=== PATIENT | male | born 1955 | race Caucasian/White ===

== ENCOUNTER → 2019-08-07 05:41 | Day surgery (SDC) | payer BC ==
--- NOTE | 2019-08-03 01:07 | HP ---
CC: Dr. Alex Javier; Dr. Nba Gonzalez; Dr. Oren Dorman * ADMISSION HISTORY AND PHYSICAL: DATE OF ADMISSION: 08/07/19 ATTENDING SURGEON: Dr. Nba Ferrara.* (DICTATED BY ZOILA MCALLISTER) CHIEF COMPLAINT: Rectal carcinoma. HISTORY OF PRESENT ILLNESS: This is a 63-year-old male who for at least the past year had noted intermittent rectal bleeding. Beginning about 3 months ago , he noticed blood more consistently with each bowel movement and some accompanying pain. Of late, pain has been more consistent both with and between bowel movements. He was seen and examined by Dr. Ferrara on 06/29/19, at which time, rectal exam revealed a right-sided posterolateral fixed mass within the rectum. He underwent colonoscopy on 07/06/[address] Crane, which confirmed the presence of a right-sided posterolateral partial circumferential mass, from which biopsies were taken showing an invasive moderately differentiated adenocarcinoma. CT scan from 07/19/19 showed cirrhosis as well as splenomegaly and portosystemic shunt/varices. Also noted were mild diverticulosis and a probable enchondroma in the right femur. A lesion was confirmed in the distal rectum extending to the anus and with some sparing on the left side consistent with known carcinoma, one lymph node was seen posteriorly in the mesorectum measuring 0.6 cm. The patient did undergo an MRI today but that report is not yet available. He has been seen by both medical and radiation oncologists and was initiated by Dr. Gonzalez on extended- release morphine sulfate with improvement. He was noted to be mildly anemic on recent lab work from 07/06/19. His case was reviewed at [facility] and he has been recommended for neoadjuvant chemoradiation therapy, which is planned to start on 08/07/19. Dr. Ferrara has discussed with him the indications for port placement as well as the risks and alternatives. The patient elected to proceed as scheduled with placement of a power port. The patient's family history is negative for colorectal cancer, though was positive for ovarian cancer in his mother. PAST MEDICAL HISTORY: 1. Hepatitis C (apparently with active disease despite two separate treatment regimens with interferon. Most recent liver function tests showed normal transaminases, though CT findings are noted as above). 2. Hypertension (currently untreated). 3. Glaucoma. 4. Peripheral edema. 5. Obesity. (The patient has not seen his primary care provider in 3 to 4 years). PAST SURGICAL HISTORY: Previous surgeries include exploratory laparotomy for ruptured appendicitis. CURRENT MEDICATIONS: 1. Latanoprost 0.005% one drop each eye once daily. 2. Timolol 0.5% one drop each eye once daily. DRUG ALLERGIES: None known. FAMILY HISTORY: As noted above. Father from CHF. No known family history of anesthesia problems, bleeding or clotting disorders. SOCIAL HISTORY: The patient is single and lives alone. He is employed as a biomedical service engineer. He did smoke up to 1 pack per day many years ago and then intermittently until he quit in 2010. He drinks 2 beers per week. He denies any other recreational drug use. REVIEW OF SYSTEMS: General: No recent constitutional symptoms or acute illnesses other than described in the HPI. He states that his weight has been relatively stable. HEENT: No problems reported. No recent visual changes. Cardiovascular: No chest pain, palpitations, or history of heart murmur. He has been treated for hypertension in the past but not lately. Respiratory: No recent cough or shortness of breath. No respiratory complaints. GI: As above per HPI. No upper GI complaints. Apparently active hepatitis C. : No problems reported. Endocrine: No diabetes or thyroid dysfunction. Musculoskeletal: No complaints. PHYSICAL EXAMINATION GENERAL: Well-nourished obese male in no acute distress. VITAL SIGNS: Height 5 feet 9 inches, weight 245 pounds. Other vital signs per nursing. HEENT: Pupils equal, round, and reactive. EOMS intact. No conjunctival pallor. Oropharynx: Teeth in fair repair. Some missing teeth. No intraoral lesions. NECK: No lymphadenopathy in the cervical or supraclavicular regions. No thyromegaly or masses. LUNGS: Clear to auscultation. No rales or wheezes. HEART: Regular rate and rhythm. No murmur noted. ABDOMEN: Well-healed lower midline incision. Soft, nontender to palpation. No palpable masses or organomegaly, though exam limited by body habitus. BACK: No spinous process or CVA tenderness. EXTREMITIES: No obvious edema. He does have compression stockings in place bilaterally per the patient. No open lesions in the lower extremities. GENITALIA: Not done. RECTAL: Not done. NEUROLOGICAL: Grossly intact. SKIN: Warm and dry. No suspicious rashes or lesions noted. IMPRESSION: Rectal carcinoma. PLAN: Power port placement for neoadjuvant chemotherapy. ZOILA MCALLISTER [id number]/[facility] #: [id number] MTDD
[~2019-08-07 05:41] MED LIST: Buffered Lidocaine 1% SYRIN* 1 ML/SYRINGE INTRADERM ONE; Dexamethasone TAB* 4 MG ONE; Dexamethasone TAB* 4 MG PO ONE; DiMENhydriNATE IV* 50 MG/ML VIAL IV PUSH PRN; Famotidine IV* 10 MG/ML 2 ML (20 mg) IV ONE; Famotidine IV* 10 MG/ML 2 ML (20 mg) ONE; Lactated Ringers 1000 ML Bag* 1,000 ML IV SCH; Lidocaine 1% INJ* 10 MG/ML 30 ML SDV ONE; Lidocaine 2% PF * 5 ML VIAL ONE; Midazolam* 1 MG/ML 10 ML VIAL (10 MG) ONE; Naloxone* 0.4 MG/ML 1 ML VIAL IV PRN; Ondansetron ODT TAB* 4 MG ONE; Ondansetron ODT TAB* 4 MG PO ONE; Propofol* 10 MG/ML 20 ML BTL ONE; ceFAZolin 2 GM in NS PREMIX(*) 2 GM/100 ML BAG IVPB ONE; fentaNYL* 50 MCG/ML 2 ML VIAL (100 MCG VIAL) IV PRN; fentaNYL* 50 MCG/ML 5 ML VIAL (250 MCG VIAL) ONE; oxyCODONE TAB* 5 MG TAB PO PRN
[2019-08-07 09:27] VITALS: BP 139/70
--- NOTE | 2019-08-08 20:38 | OP ---
CC: Oren Dorman MD, Alex Javier MD * DATE OF OPERATION: 08/07/19 - [facility] DATE OF : 53 SURGEON: Nba Ferrara MD POWER WASHER: None. ANESTHESIOLOGIST: Dr. Bustillos. ANESTHESIA: Local MAC. PRE-OP DIAGNOSIS: Rectal carcinoma. POST-OP DIAGNOSIS: Rectal carcinoma. OPERATIVE PROCEDURE: PowerPort placement, left subclavian. ESTIMATED BLOOD LOSS: Minimal. IV FLUIDS: Crystalloid. SPECIMEN: None. DRAINS: None. COMPLICATIONS: None. COUNTS: The instrument, needle, and sponge counts were correct. DESCRIPTION OF PROCEDURE: The patient was brought to the operating room and placed on the table supine. Sequential compression devices were placed in both lower extremities. Intravenous sedation was administered. He was positioned and padded appropriately. He was prepped and draped in the usual sterile fashion. He received appropriate intravenous antibiotics. A time-out was performed. Local anesthetic was infiltrated into the skin and soft tissue prior to making each incision. Local anesthetic was infiltrated for a left subclavian approach. The patient was positioned in Trendelenburg and then using an 18- gauge needle, the left subclavian vein was accessed on the first pass. The guidewire was advanced into the superior vena cava under fluoroscopic guidance. The additional local anesthetic was infiltrated to the upper left chest and a transverse incision was created and using cautery dissection, a subcutaneous pocket was created. A counterincision was made at the guidewire insertion site and then an 8-Slov[place] PowerPort catheter was back tunneled to the pocket. A peel -away sheath and dilator were advanced over the guidewire into the superior vena cava under fluoroscopic guidance. Dilator and the guidewire were removed and then the catheter tip was advanced to the atriocaval junction. A peel-away sheath was removed. The catheter tip was again confirmed prior to cutting the catheter to appropriate length, which was then connected to the PowerPort and placed into the subcutaneous pocket. It was drawn and flushed without difficulty. The port was secured into the pocket with 2 sutures of 2-0 Prolene. The pocket was closed with two layers using 3-0 Vicryl for the subcutaneous tissues, 4-0 Monocryl for the skin. Counterincision was closed with 4-0 Monocryl. The port was accessed. It was flushed with heparinized saline. Steri-Strips were applied. The access needle was placed and then Tegaderm dressing was placed over this. The patient tolerated the procedure well and was awakened and transferred to Recovery stable. [id number]/[facility] #: [id number] UMA
== END | disposition home or self-care (01) ==
LOC: OR 05:41
PROVIDERS: ATTEND Surgery
DX: C20 Malignant neoplasm of rectum (principal); I10 Essential (primary) hypertension; R60.0 Localized edema; E66.9 Obesity, unspecified; B19.20 Unspecified viral hepatitis C without hepatic coma; K74.60 Unspecified cirrhosis of liver
CPT/HCPCS: 76000; A9270-GY; C1788; J0690; J1642; J2250; J2704; J3010; J8540

== ENCOUNTER 2020-01-03 10:17 | Inpatient (IN) | payer MEDICARE, BC ==
[2020-01-03 10:45] LABS: Hematocrit 25 % (42-52); Hemoglobin 8.3 g/dL (14.0-18.0); Mean Corpuscular HGB Conc 34 g/dL (31-36); Mean Corpuscular Hemoglobin 33 pg (27-31); Mean Corpuscular Volume 99 fL (80-94); Mean Platelet Volume 8.6 fL (7.4-10.4); Platelet Count 142 10^3/uL (150-450); Red Blood Count 2.48 10^6 /uL (4.18-5.48); Red Cell Distribution Width 20 % (10-15); White Blood Count 2.1 10^3/uL (3.5-10.8)
[2020-01-03 10:47] LABS: ABS Eosinophils 0.1 10^3/ul (0-0.6); ABS Lymphocytes 0.4 10^3/ul (1.0-4.8); ABS Monocytes 0.9 10^3/ul (0-0.8); ABS Neutrophils 0.7 10^3/ul (1.5-7.7); Eosinophil % 4.8 %; Lymphocyte % 19.4 %
[2020-01-03 10:57] LABS: ALT 34 U/L (7-52); AST 43 U/L (13-39); Alkaline Phosphatase 119 U/L (34-104); Anion Gap 5 mmol/L (2-11); BUN/Creatinine Ratio 28.2 (8-20); Blood Urea Nitrogen 22 mg/dL (6-24); CO2 Carbon Dioxide 24 mmol/L (22-32); Calcium 8.7 mg/dL (8.6-10.3); Chloride 105 mmol/L (101-111); EGFR African American 120.9 (>60); EGFR Non-African American 99.9 (>60); Globulin 3.1 g/dL (2-4); Glucose 172 mg/dL (70-100); Magnesium 1.9 mg/dL (1.9-2.7); Sodium 134 mmol/L (135-145); Total Protein 6.1 g/dL (6.4-8.9)
[2020-01-03 11:00] LABS: % Iron Saturation 14 % (15-55); Iron 39 ug/dL (50-212); Total Iron Binding Capacity 283 mcg/dL (250-450); Transferrin 202 mg/dL (203-362)
[2020-01-03 11:20] LABS: Ferritin 75.5 ng/mL (24-336)
[2020-01-03] MEDS ORDERED: Acetaminophen TAB* 325 MG PO PRN (12:02)
[2020-01-03] MEDS ORDERED: oxyCODONE/Acetamin 5/325 MG* TAB PO PRN (12:02)
[2020-01-03] MEDS ORDERED: Ondansetron INJ* 2 MG/ML VIAL IV PRN (12:02)
[2020-01-03] MEDS: NS 0.9% 1000 ML** 1,000 ML IV SCH ×2 (13:13→21:37)
[2020-01-03] MEDS: Enoxaparin(*) 40 MG/0.4 ML SYR SUBCUT SCH (14:36)
[2020-01-03] MEDS ORDERED: Iohexol 300* (CONTRAST) 10 ML SDV IV ONE (16:06)
[2020-01-03] MEDS ORDERED: Piperacillin/Tazobac ADVAN(*) 3.375 GM in NS 0.9% 100 ML* 100 ML IVPB ONE (17:04)
--- NOTE | 2020-01-03 17:23 | CONS ---
CC: Dr. Oren Dorman; Primary Care Doctor; [facility]; Dr. Nba Gonzalez; Dr. Nikky Lomeli, Colorectal Surgeon, [facility] SURGICAL CONSULTATION REPORT: DATE OF CONSULT: 01/03/20 HISTORY OF PRESENT ILLNESS: I was contacted by the oncology service to evaluate Mr. 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 The patient did undergo evaluation by the oncologist earlier today, wh ich included rectal exam and the patient refused rectal exam today by me. The patient describes last chemotherapy of FOLFOX just over 2 weeks ago, started to feel poorly about a week ago on . It was accompanied by decreased appetite. He described pain in the mid abd omen that persisted, did not have aggravating factors of eating or drinking; however, the patient did have decreased intake. Over the weekend, he woke up and had bloody bowel movements that he described as melena, but sound as though they had blood clot in them. It was accompanied with flatus. Later on, the patient had a sy ncopal episode. The patient lives alone. He had woken up later, not sure how long afterwards, incont inent of urine. He slowly brought himself up to his bed where he slept it off. He missed his follow up appointment with Oncology earlier this week and again was seen today in their offices. The patient describes the abdominal pain as severe. It does wax and wane, lasting at times for over a minute of severe pain where he feels like something is trying to move through a stricture or some t ightness. He has had 1 episode of vomiting, intermittent nausea, as well as dry heaves at times. Th is past week, he has been passing blood as well as intermittent semi-formed bowel movements. He is p assing flatus. He denies fever, but has been checking his temperature on his home thermometer where it has been 96, which he felt is not accurate, but does not state that he had chills or felt warm. The patient had rectal bleeding for many years. He thought it was secondary to hemorrhoids. He did undergo a sigmoidoscopy in June of last year where he was noted to have a near obstructing bleedin g rectal lesion. The patient has been seen by colorectal surgeons where he made it clear that he did not want to undergo a colostomy if he did not have to. He was started on neoadjuvant chemotherapy, which continues. Radiation therapy treatments have been completed, and the patient has no new follow ups with colorectal surgeon in [place] at this point. The patient denies any hernias. He lies down for relief of this pain and again it will pass with kaitlin e. It is nonradiating. It is 10/10. PAST MEDICAL HISTORY: Hepatitis C, cirrhosis, glaucoma, hypertension, obesity, peripheral vascular d isease. PAST SURGICAL HISTORY: Exploratory laparotomy, appendectomy for ruptured appendix. MEDICATIONS: Include: 1. Amlodipine. 2. Multivitamin. Again, the FOLFOX completed 2 weeks ago. ALLERGIES: No known drug allergies. FAMILY HISTORY: Cancers. SOCIAL HISTORY: He lives alone. He does not smoke. He drinks occasionally. I do not believe there are any surrogate decision makers. REVIEW OF SYSTEMS: No shortness of breath. He is tired. Syncopal event as described. Abdominal pa in as described. No dysuria. History of significant thrush earlier this year, but not bothering him at this time. No depression. PHYSICAL EXAM: Temperature 97.4, blood pressure 167/70, heart rate 94, respirations 18, O2 sat of 10 0% on room air. He is alert, sitting in bed, pale, in mild distress. Head, ears, eyes, nose, and th roat: Normocephalic, atraumatic. Sclerae anicteric. Mucous membranes dry. Neck: No lymphadenopath y. Abdomen: Soft, obese. Minimally tender on deep palpation at the periumbilical site. Well- heale d midline incision. No hernias noted. No skin changes. No CVA tenderness. Rectal exam shows no [place] lulitis in the perianal area. The patient refused digital rectal exam, however, today. Hairless con sistent with radiation treatment and no protruding mass appreciated. Extremities with hemosiderin st aining bilaterally consistent with venous stasis disease. DIAGNOSTIC STUDIES/LAB DATA: Labs today show white count of 2.1, H and H 8.3/25 which is down from 2 9 just 2 weeks ago, platelet count 142 which is significant improvement than when he was on additiona l chemotherapy where it was much lower. Glucose 172. Total bilirubin 1.9. Albumin 3.0. The patient is drinking for the CAT scan. No imaging is available at this time. IMPRESSION AND PLAN: A 64-year-old gentleman with a large rectal lesion on workup last year, with kn own rectal cancer, undergoing neoadjuvant chemotherapy, who now presents with a week of abdominal rodrigue n along with anemia, recent syncopal episode. Surgical differential diagnosis, concern for perirectal abscesses that can occur with such lesions, although I do not feel this is the diagnosis, although I was not able to examine him today as the patient refused. Partial small bowel obstruction secondary to previous surgery and potential mass effect, but this is not something we would operate on at this time. I will look forward to a CAT scan of the abdomen and pelvis. We are concerned with a near ob structing lesion and the possibility of proximal perforation. I do not believe the patient has this judging by his abdominal exam today. He may suffer with dehydration and anemia and subsequent mesent renny angina. My recommendation is hydration, possible blood transfusion, GI prophylaxis, obtain CT s can and serial abdominal exams, pain control. I discussed this with the patient. We also spent a fa ir amount of time talking today about recommendation for surgical intervention namely APR. The patie nt is somewhat fearful of this procedure, but I think our discussion today was somewhat helpful in th at direction, it has given something else for the patient to think about. Again, we will continue to follow. We will leave antibiotics at the discretion of the primary team unless something should mini nge with the findings on the CT scan. [id number]/[facility] #: [id number]
[2020-01-03] MEDS ORDERED: Zosyn per Pharmacy* NOTE FOLLOW UP SCH (18:00)
[2020-01-03] MEDS ORDERED: diPHENhydraMINE IV* 50 MG/ML 1 ml VIAL (BENADRYL) IV ONE (21:00)
[2020-01-03] MEDS: ZOSYN 3.375 GM Q8H per EXTENDED INFUSION IVPB SCH ×2 (22:52)
[2020-01-04] MEDS: NS 0.9% 1000 ML** 1,000 ML IV SCH ×3 (04:35→21:57)
[2020-01-04] MEDS: ZOSYN 3.375 GM Q8H per EXTENDED INFUSION IVPB SCH ×6 (06:20→21:58)
[2020-01-04 06:28] LABS: Hematocrit 21 % (42-52); Hemoglobin 7.1 g/dL (14.0-18.0); Mean Corpuscular HGB Conc 34 g/dL (31-36); Mean Corpuscular Hemoglobin 34 pg (27-31); Mean Corpuscular Volume 98 fL (80-94); Mean Platelet Volume 8.5 fL (7.4-10.4); Platelet Count 128 10^3/uL (150-450); Red Blood Count 2.13 10^6 /uL (4.18-5.48); Red Cell Distribution Width 21 % (10-15); White Blood Count 2.1 10^3/uL (3.5-10.8)
[2020-01-04 06:32] LABS: Albumin 2.5 g/dL (3.2-5.2); Albumin/Globulin Ratio 0.9 (1-3); BUN/Creatinine Ratio 26.8 (8-20); Calcium 7.9 mg/dL (8.6-10.3); EGFR African American 114.1 (>60); EGFR Non-African American 94.3 (>60); Globulin 2.7 g/dL (2-4); Magnesium 1.8 mg/dL (1.9-2.7); Potassium 3.6 mmol/L (3.5-5.0); Total Bilirubin 1.6 mg/dL (0.2-1.0); Total Protein 5.2 g/dL (6.4-8.9)
[2020-01-04 06:33] LABS: ABS Eosinophils 0.2 10^3/ul (0-0.6); ABS Lymphocytes 0.4 10^3/ul (1.0-4.8); ABS Monocytes 0.9 10^3/ul (0-0.8); ABS Neutrophils 0.5 10^3/ul (1.5-7.7); Eosinophil % 11.2 %; Lymphocyte % 18.1 %
[2020-01-04] MEDS ORDERED: Magnesium Sulfate 2 GM IV* 2 GM/50 ML BAG IVPB ONE (10:43)
--- NOTE | 2020-01-04 10:57 | PN ---
Progress Note - Progress Note Date of Service: 01/04/20 Note: Surgery Progress Note S: Darell is feeling better this morning than yesterday. His abdominal pain has improved. He is having more watery diarrhea however. O: Vital Signs - 24 hr 01/03/20 01/03/20 01/03/20 13:15 16:08 16:10 Temperature 100.0 F 97.4 F Pulse Rate 99 94 Respiratory 16 16 18 Rate Blood Pressure 146/70 167/70 (mmHg) O2 Sat by Pulse 100 100 Oximetry 01/03/20 01/03/20 01/03/20 19:41 20:08 20:50 Temperature 98.1 F Pulse Rate 95 Respiratory 18 18 18 Rate Blood Pressure 136/67 (mmHg) O2 Sat by Pulse 99 Oximetry 01/03/20 01/03/20 01/04/20 21:05 23:01 01:20 Temperature 97.9 F Pulse Rate 95 Respiratory 18 18 18 Rate Blood Pressure 135/70 (mmHg) O2 Sat by Pulse 100 Oximetry 01/04/20 01/04/20 04:19 08:00 Temperature 98.0 F 98.7 F Pulse Rate 98 102 Respiratory 18 16 Rate Blood Pressure 111/49 149/67 (mmHg) O2 Sat by Pulse 96 100 Oximetry Intake & Output 01/03/20 01/04/20 01/04/20 22:59 06:59 14:59 Intake Total 1086 1083 Output Total 300 0 Balance 1086 783 0 Weight 217 lb Intake: IV Fluids 1086 980 ABX - PIPERACILLIN 106 NS (0.9%) 980 980 IVPB 103 ABX - PIPERACILLIN 103 Oral 0 Output: Urine 300 0 Other: Estimated Stool Amount Medium Laboratory Results - last 24 hr 01/03/20 01/04/20 01/04/20 10:30 06:03 06:14 WBC 2.1 L RBC 2.13 L Hgb 7.1 L Hct 21 L MCV 98 H MCH 34 H MCHC 34 RDW 21 H Plt Count 128 L MPV 8.5 Neut % (Auto) 26.3 Lymph % (Auto) 18.1 [place] % (Auto) 43.5 Eos % (Auto) 11.2 Baso % (Auto) 0.9 Absolute Neuts (auto) 0.5 L Absolute Lymphs (auto) 0.4 L Absolute Monos (auto) 0.9 H Absolute Eos (auto) 0.2 Absolute Basos (auto) 0.0 Absolute Nucleated RBC 0.0 Nucleated RBC % 1.0 Sodium 134 L 135 Potassium 4.0 3.6 Chloride 105 108 Carbon Dioxide 24 22 Anion Gap 5 5 BUN 22 22 Creatinine 0.78 0.82 Est GFR ( Amer) 120.9 114.1 Est GFR (Non-Af Amer) 99.9 94.3 BUN/Creatinine Ratio 28.2 H 26.8 H Glucose 172 H 141 H Calcium 8.7 7.9 L Magnesium 1.9 1.8 L Iron 39 L TIBC 283 % Saturation 14 L Unsat Iron Binding < 268 Transferrin 202 L Ferritin 75.5 Total Bilirubin 1.90 H 1.60 H AST 43 H 31 ALT 34 26 Alkaline Phosphatase 119 H 100 Total Protein 6.1 L 5.2 L Albumin 3.0 L 2.5 L Globulin 3.1 2.7 Albumin/Globulin Ratio 1.0 0.9 L Physical exam: General- frail appearing man lying in bed, no apparent distress Abdomen- obese, no tenderness to deep palpation Ext- no edema A/P: 64 M with rectal cancer, sp cycle 4 of FOLFOX over 2 weeks ago who was admitted by Dr. Dorman from the office yesterday for worsening fatigue, weakness, abdominal pain. - I have reviewed patient's imaging from yesterday, including gallbladder US and CT abdomen/pelvis. On US he has a thickened, non distended gallbladder with no stones and on CT abdomen he has new onset ascites, cirrhosis, evidence of portal hypertension and long segment colon thickening concerning for colitis. Most likely patient has been experiencing neutropenic colitis, although he is a couple weeks out from his last cycle of FOLFOX. Today he feels improved after resuscitation and IV abx. Diarrhea is new onset and c.diff and stool studies have been ordered by the oncology team. - Recommend continued abx and starting CLD today - Patient has also agreed to be transfused 1 PRBC today I discussed patient today with Ahmet from the Heme Onc team.
[2020-01-04] MEDS: Enoxaparin(*) 40 MG/0.4 ML SYR SUBCUT SCH (12:16)
--- NOTE | 2020-01-04 12:44 | PN ---
Progress Note - Progress Note Date of Service: 01/04/20 SOAP: Subjective: [Feels better than he did yesterday. Was incontinent of watery stool several times overnight, no gross blood or melena however. Tmax 100.0F at the time he reached the floor yesterday. No n/v. Hungry and would like to eat. Abdominal pain comes in waves, nothing consistent.] Objective: [ Vital Signs: Temp Pulse Resp BP Pulse Ox 98.7 F 102 16 149/67 100 01/04/20 08:00 01/04/20 08:00 01/04/20 08:00 01/04/20 08:00 01/04/20 08:00 Acetaminophen (Tylenol Tab*) 650 mg PO Q4H PRN PRN Reason: PAIN - MILD Enoxaparin Sodium (Lovenox(*)) 40 mg SUBCUT Q24H [facility] Last Admin: 01/04/20 12:16 Dose: 40 mg Sodium Chloride (Ns 0.9% 1000 Ml) 1,000 mls @ 150 mls/hr IV PER RATE [facility] Last Admin: 01/04/20 04:35 Dose: 150 mls/hr Piperacillin Sod/Tazobactam (Sod 3.375 gm/ Sodium Chloride) 100 mls @ 25 mls/ hr IVPB Q8H [facility] Last Admin: 01/04/20 06:20 Dose: 25 mls/hr Ondansetron HCl (Zofran Inj*) 4 mg IV Q4H PRN PRN Reason: NAUSEA/VOMITING Oxycodone/Acetaminophen (Percocet 5/325 Tab*) 1 tab PO Q4H PRN PRN Reason: PAIN - MODERATE Pharmacy Consult (Zosyn Per Pharmacy*) 1 note FOLLOW UP .ZOSYN PER PHARMACY [facility] Laboratory Results - last 24 hr 01/03/20 01/04/20 01/04/20 10:30 06:03 06:14 WBC 2.1 L RBC 2.13 L Hgb 7.1 L Hct 21 L MCV 98 H MCH 34 H MCHC 34 RDW 21 H Plt Count 128 L MPV 8.5 Neut % (Auto) 26.3 Lymph % (Auto) 18.1 [place] % (Auto) 43.5 Eos % (Auto) 11.2 Baso % (Auto) 0.9 Absolute Neuts (auto) 0.5 L Absolute Lymphs (auto) 0.4 L Absolute Monos (auto) 0.9 H Absolute Eos (auto) 0.2 Absolute Basos (auto) 0.0 Absolute Nucleated RBC 0.0 Nucleated RBC % 1.0 Sodium 135 Potassium 3.6 Chloride 108 Carbon Dioxide 22 Anion Gap 5 BUN 22 Creatinine 0.82 Est GFR ( Amer) 114.1 Est GFR (Non-Af Amer) 94.3 BUN/Creatinine Ratio 26.8 H Glucose 141 H Calcium 7.9 L Magnesium 1.8 L Total Bilirubin 1.60 H AST 31 ALT 26 Alkaline Phosphatase 100 Total Protein 5.2 L Albumin 2.5 L Globulin 2.7 Albumin/Globulin Ratio 0.9 L Blood Type O Positive Antibody Screen Crossmatch 01/04/20 06:14 WBC RBC Hgb Hct MCV MCH MCHC RDW Plt Count MPV Neut % (Auto) Lymph % (Auto) [place] % (Auto) Eos % (Auto) Baso % (Auto) Absolute Neuts (auto) Absolute Lymphs (auto) Absolute Monos (auto) Absolute Eos (auto) Absolute Basos (auto) Absolute Nucleated RBC Nucleated RBC % Sodium Potassium Chloride Carbon Dioxide Anion Gap BUN Creatinine Est GFR ( Amer) Est GFR (Non-Af Amer) BUN/Creatinine Ratio Glucose Calcium Magnesium Total Bilirubin AST ALT Alkaline Phosphatase Total Protein Albumin Globulin Albumin/Globulin Ratio Blood Type O Positive Antibody Screen Negative Crossmatch See Detail Exam Gen: ill appearing 64 yo male in NAD HEENT: MMM CV: RRR, III/ murmur Resp: CTA Abd: midly distended but nonTTP Ext: no edema] Assessment: [This is a 64 yo male with rectal CA currently receiving neoadjuvant FOLFOX who presented yesterday to the oncology suite after several days of BRBPR and melena with associated abdominal pain. CT demonstrates mural wall thickening of the ascending and transverse colon c/w a colitis. Ddx. infectious colitis, neutropenic colitis (typhilitis). He remains neutropenic, but afebrile. Now day 18 of C4. ] Plan: [1. Colitis - surgical consultation is appreciated - eval for C.diff and send for stool culture to identify alternative pathogens - cont Zosyn and IVF - advance to clear liquid diet 2. Pancytopenia secondary to chemotherapy - his degree of neuropenia is late for FOLFOX, but likely associated with his acute illness - hold on initiating GCSF at this time but will consider if fevers develop or neutropenia is prolonged - degree of anemia is certainly related to bleeding from the colon, drop overnight likely due to dilution from IVF - give 1UPRBCs today 3. Rectal CA - s/p C4 neoadjuvant FOLFOX following 5FU/XRT which was c/b grade 3 mucositis Dispo: requires continued inpatient care]
[2020-01-05] MEDS: NS 0.9% 1000 ML** 1,000 ML IV SCH (05:12)
[2020-01-05] MEDS: ZOSYN 3.375 GM Q8H per EXTENDED INFUSION IVPB SCH ×2 (05:51)
--- NOTE | 2020-01-05 08:37 | PN ---
Progress Note - Progress Note Date of Service: 01/05/20 Note: S: Reports he is feeling much better today. Minimal to no pain, no nausea, emesis. Somewhat formed BM passed last night. Passing flatus as well. Tolerating diet. O: Temp Pulse Resp BP Pulse Ox 98.9 F 94 16 143/64 99 01/05/20 07:51 01/05/20 07:51 01/05/20 07:51 01/05/20 07:51 01/05/20 07:51 Intake and Output Last 24 Hours 01/03/20 01/04/20 01/05/20 01/06/20 06:59 06:59 06:59 06:59 Intake Total 2519 6323 Output Total 300 1550 75 Balance 2219 4773 -75 Weight 217 lb Intake: IV Fluids 2065 3021 ABX - PIPERACILLIN 106 NS (0.9%) 1960 2971 mag 50 IVPB 103 220 ABX - PIPERACILLIN 103 220 Oral 350 2780 Packed Cells 302 Output: Urine 300 600 75 Liquid Stool 950 Other: Estimated Void Large Date of Last Bowel t Movement # Bowel Movements 1 1 Estimated Stool Amount Medium Medium Small # Voids 1 Morning labs pending PEX General: Alert, in NAD. HEENT: Oropharynx clear. PERRLA. Heart: Regular rhythm. Tachycardic. No murmurs, rubs, gallups. Lungs: CTAB, no WRR. ABD: BS present. Soft, nontender and nondistended. No guarding or rebound tenderness. Extremities: Distal pulses intact BL. No edema. Calves soft and nontender. Assessment and plan: 64 M with rectal cancer, admitted for worsening fatigue, weakness, ABD pain A/P: 64 M with rectal cancer, sp cycle 4 of FOLFOX over 2 weeks ago who was admitted by Dr. Dorman from the office yesterday for worsening fatigue, weakness, abdominal pain, likely cause being neutropenic colitis. Recieved 1 PRBC yesterday. Continue antibiotics and IV fluids, additionally ambulation and kelly stockings. Advanced diet to full liquids.
[2020-01-05 10:45] LABS: Albumin 2.7 g/dL (3.2-5.2); Albumin/Globulin Ratio 0.9 (1-3); BUN/Creatinine Ratio 22.8 (8-20); Calcium 7.8 mg/dL (8.6-10.3); EGFR African American 119.1 (>60); EGFR Non-African American 98.4 (>60); Globulin 2.9 g/dL (2-4); Magnesium 1.9 mg/dL (1.9-2.7); Total Bilirubin 1.7 mg/dL (0.2-1.0); Total Protein 5.6 g/dL (6.4-8.9)
[2020-01-05 10:48] LABS: Hematocrit 24 % (42-52); Hemoglobin 8.1 g/dL (14.0-18.0); Mean Corpuscular HGB Conc 34 g/dL (31-36); Mean Corpuscular Hemoglobin 33 pg (27-31); Mean Corpuscular Volume 97 fL (80-94); Mean Platelet Volume 8.3 fL (7.4-10.4); Platelet Count 128 10^3/uL (150-450); Red Blood Count 2.49 10^6 /uL (4.18-5.48); Red Cell Distribution Width 21 % (10-15); White Blood Count 2.7 10^3/uL (3.5-10.8)
--- NOTE | 2020-01-05 11:27 | PN ---
Progress Note - Progress Note Date of Service: 01/05/20 SOAP: Subjective: [Feels much better today. Abd pain has resolved. Tolerated full liquid breakfast. Still having freq stools, but more substantive. C.diff negative. Remains afebrile.] Objective: [ Vital Signs: Temp Pulse Resp BP Pulse Ox 98.9 F 94 16 143/64 99 01/05/20 07:51 01/05/20 07:51 01/05/20 07:51 01/05/20 07:51 01/05/20 07:51 Acetaminophen (Tylenol Tab*) 650 mg PO Q4H PRN PRN Reason: PAIN - MILD Enoxaparin Sodium (Lovenox(*)) 40 mg SUBCUT Q24H COUNTS INCLUDE 234 BEDS AT THE [facility] Last Admin: 01/04/20 12:16 Dose: 40 mg Piperacillin Sod/Tazobactam (Sod 3.375 gm/ Sodium Chloride) 100 mls @ 25 mls/ hr IVPB Q8H COUNTS INCLUDE 234 BEDS AT THE [facility] Last Admin: 01/05/20 05:51 Dose: 25 mls/hr Potassium Chloride/Sodium Chloride (Ns 0.9% W/ 40 Meq Kcl 1000 Ml*) 1,000 mls @ 75 mls/hr IV PER RATE COUNTS INCLUDE 234 BEDS AT THE [facility] Ondansetron HCl (Zofran Inj*) 4 mg IV Q4H PRN PRN Reason: NAUSEA/VOMITING Oxycodone/Acetaminophen (Percocet 5/325 Tab*) 1 tab PO Q4H PRN PRN Reason: PAIN - MODERATE Pharmacy Consult (Zosyn Per Pharmacy*) 1 note FOLLOW UP .ZOSYN PER PHARMACY COUNTS INCLUDE 234 BEDS AT THE [facility] Laboratory Results - last 24 hr 01/04/20 01/05/20 01/05/20 06:14 08:14 08:14 WBC 2.7 L RBC 2.49 L Hgb 8.1 L Hct 24 L MCV 97 H MCH 33 H MCHC 34 RDW 21 H Plt Count 128 L MPV 8.3 Sodium 136 Potassium 3.0 L Chloride 109 Carbon Dioxide 20 L Anion Gap 7 BUN 18 Creatinine 0.79 Est GFR ( Amer) 119.1 Est GFR (Non-Af Amer) 98.4 BUN/Creatinine Ratio 22.8 H Glucose 185 H Calcium 7.8 L Magnesium 1.9 Total Bilirubin 1.70 H AST 36 ALT 27 Alkaline Phosphatase 101 Total Protein 5.6 L Albumin 2.7 L Globulin 2.9 Albumin/Globulin Ratio 0.9 L Blood Type O Positive Antibody Screen Negative Crossmatch See Detail Exam Gen: mildly ill appearing 64 yo male in NAD HEENT: MMM CV: RRR, III/ murmur Resp: CTA Abd: midly distended but nonTTP Ext: no edema] Assessment: [This is a 64 yo male with rectal CA currently receiving neoadjuvant FOLFOX who presented yesterday to the oncology suite after several days of BRBPR and melena with associated abdominal pain. CT demonstrates mural wall thickening of the ascending and transverse colon c/w a colitis. Ddx. infectious colitis, neutropenic colitis (typhilitis). Now day 19 of C4. ANC still pending, but total WBC increased slightly today.] Plan: [1. Colitis - surgical consultation is appreciated - neg for C.diff and stool culture pending - cont Zosyn and IVF - advanced to full liquid diet, can consider soft foods for dinner 2. Pancytopenia secondary to chemotherapy - his degree of neuropenia is late for FOLFOX, but likely associated with his acute illness - holding on initiating GCSF, but will consider if fevers develop or neutropenia is prolonged - s/p 1U PRBCs yesterday with good Hgb response - will cont to monitor 3. Rectal CA - s/p C4 neoadjuvant FOLFOX following 5FU/XRT which was c/b grade 3 mucositis Dispo: requires continued inpatient care, hopeful for dc home in the next 1-2d once he can tolerate po intake reliably and ANC >1000]
[2020-01-05 11:51] LABS: ABS Eosinophils 0.3 10^3/ul (0-0.6); ABS Lymphocytes 0.5 10^3/ul (1.0-4.8); ABS Monocytes 0.8 10^3/ul (0-0.8); ABS Neutrophils 1.1 10^3/ul (1.5-7.7); Eosinophil % 9.3 %; Lymphocyte % 17.5 %; Nucleated Red Blood Cells % 1.3
[2020-01-05 11:53] LABS: Polychromasia 2+
[2020-01-05] MEDS: NS 0.9% w/ 40 Meq KCL 1000 ML* 1,000 ML IV SCH (12:03)
[2020-01-05] MEDS ORDERED: NS 0.9% 100 ML* 100 ML ONE (13:46)
[2020-01-05] MEDS: ZOSYN 3.375 GM Q6H IVPB SCH ×4 (13:55→20:47)
[2020-01-05] MEDS: Enoxaparin(*) 40 MG/0.4 ML SYR SUBCUT SCH (13:56)
[2020-01-05] MEDS: KCL 10 MEQ/50 ML IVPREMIX* 10 MEQ/50 ML BAG IV SCH ×4 (14:42→18:29)
[2020-01-05 21:12] LABS: Potassium 3.6 mmol/L (3.5-5.0)
[2020-01-06] MEDS: ZOSYN 3.375 GM Q6H IVPB SCH ×8 (01:40→19:58)
[2020-01-06] MEDS: NS 0.9% w/ 40 Meq KCL 1000 ML* 1,000 ML IV SCH (01:40)
[2020-01-06 05:30] LABS: Hematocrit 23 % (42-52); Hemoglobin 7.8 g/dL (14.0-18.0); Mean Corpuscular HGB Conc 35 g/dL (31-36); Mean Corpuscular Hemoglobin 34 pg (27-31); Mean Corpuscular Volume 97 fL (80-94); Mean Platelet Volume 8.3 fL (7.4-10.4); Platelet Count 128 10^3/uL (150-450); Red Blood Count 2.33 10^6 /uL (4.18-5.48); Red Cell Distribution Width 20 % (10-15)
[2020-01-06 05:57] LABS: Albumin 2.6 g/dL (3.2-5.2); Albumin/Globulin Ratio 0.9 (1-3); BUN/Creatinine Ratio 22.5 (8-20); Calcium 7.8 mg/dL (8.6-10.3); EGFR African American 134.7 (>60); EGFR Non-African American 111.3 (>60); Globulin 2.9 g/dL (2-4); Potassium 3.5 mmol/L (3.5-5.0); Total Bilirubin 1.1 mg/dL (0.2-1.0); Total Protein 5.5 g/dL (6.4-8.9)
[2020-01-06 06:04] LABS: ABS Eosinophils 0.2 10^3/ul (0-0.6); ABS Lymphocytes 0.4 10^3/ul (1.0-4.8); ABS Monocytes 0.9 10^3/ul (0-0.8); ABS Neutrophils 1.4 10^3/ul (1.5-7.7); Eosinophil % 7.4 %; Nucleated Red Blood Cells % 0.3
--- NOTE | 2020-01-06 09:36 | PN ---
Progress Note - Progress Note Date of Service: 01/06/20 SOAP: Subjective: Pt seen and examined. Continues to feel better. some flatus, formed BM, bloated Ambulating Objective: Temp Pulse Resp BP Pulse Ox 98.0 F 103 20 154/83 97 01/06/20 07:41 01/06/20 07:41 01/06/20 07:41 01/06/20 07:41 01/06/20 07:41 a and o x3, nad lungs b/l base crackles abdo: distended, atympanic, NT edema throughout LE Assessment: colitis- improving with abx Plan: No surgical intervention Lasix recommended continue abx again we discussed need to get to colorectal surgeon.
[2020-01-06] MEDS ORDERED: Furosemide IV* 10 MG/ML 2 ML VIAL (20 MG) IV ONE (09:56)
[2020-01-06] MEDS ORDERED: diPHENhydraMINE PO* 25 MG PO PRN (09:57)
[2020-01-06] MEDS: Enoxaparin(*) 40 MG/0.4 ML SYR SUBCUT SCH (12:58)
[2020-01-06] MEDS ORDERED: Furosemide IV* 10 MG/ML 2 ML VIAL (20 MG) IV SLOW PU ONE (21:00)
[2020-01-07] MEDS: ZOSYN 3.375 GM Q6H IVPB SCH ×8 (02:36→19:46)
[2020-01-07 04:00] LABS: Hematocrit 23 % (42-52); Hemoglobin 7.6 g/dL (14.0-18.0); Mean Corpuscular HGB Conc 34 g/dL (31-36); Mean Corpuscular Hemoglobin 32 pg (27-31); Mean Corpuscular Volume 97 fL (80-94); Mean Platelet Volume 8.1 fL (7.4-10.4); Platelet Count 105 10^3/uL (150-450); Red Blood Count 2.36 10^6 /uL (4.18-5.48); Red Cell Distribution Width 20 % (10-15)
[2020-01-07 04:08] LABS: Calcium 7.7 mg/dL (8.6-10.3)
[2020-01-07 04:14] LABS: BUN/Creatinine Ratio 17.4 (8-20); EGFR African American 139.2 (>60); EGFR Non-African American 115.1 (>60)
[2020-01-07 04:24] LABS: ABS Eosinophils 0.2 10^3/ul (0-0.6); ABS Lymphocytes 0.4 10^3/ul (1.0-4.8); ABS Monocytes 0.7 10^3/ul (0-0.8); ABS Neutrophils 1.7 10^3/ul (1.5-7.7); Eosinophil % 5.5 %; Lymphocyte % 12.3 %; Nucleated Red Blood Cells % 0.3
[2020-01-07] MEDS ORDERED: Furosemide IV* 10 MG/ML 2 ML VIAL (20 MG) IV ONE ×3 (10:46→19:00)
[2020-01-07] MEDS: Potassium Chlor TAB* 20 MEQ TAB.ER PO SCH ×2 (11:34→20:38)
[2020-01-07] MEDS: Enoxaparin(*) 40 MG/0.4 ML SYR SUBCUT SCH (13:48)
[2020-01-07] MEDS: KCL 20 MEQ/100 ML IVPREMIX* 20 MEQ/100 ML BAG IV SCH ×2 (14:59→17:53)
[2020-01-08] MEDS: ZOSYN 3.375 GM Q6H IVPB SCH ×8 (02:07→20:18)
[2020-01-08 06:38] LABS: BUN/Creatinine Ratio 11.8 (8-20); Calcium 7.8 mg/dL (8.6-10.3); EGFR African American 141.6 (>60); Potassium 2.9 mmol/L (3.5-5.0)
--- NOTE | 2020-01-08 08:41 | PN ---
Progress Note - Progress Note Date of Service: 01/08/20 SOAP: Subjective: []Doing well today, much better then admission. Has some continued diarrhea, breathing is better but still with extra fluid weight. He is not in pain. Eating well. Still dark stool. Acetaminophen (Tylenol Tab*) 650 mg PO Q4H PRN PRN Reason: PAIN - MILD Diphenhydramine HCl (Benadryl Po*) 25 mg PO BEDTIME PRN PRN Reason: INSOMNIA Enoxaparin Sodium (Lovenox(*)) 40 mg SUBCUT Q24H [facility] Last Admin: 01/07/20 13:48 Dose: 40 mg Heparin Sodium (Porcine) (Heparin Flush Port (Ivad)) 5 ml FLUSH DAILY [facility]; Protocol Last Admin: 01/08/20 05:40 Dose: 5 ml Piperacillin Sod/Tazobactam (Sod 3.375 gm/ Sodium Chloride) 100 mls @ 200 mls/ hr IVPB Q6H [facility] Last Admin: 01/08/20 02:07 Dose: 200 mls/hr Ondansetron HCl (Zofran Inj*) 4 mg IV Q4H PRN PRN Reason: NAUSEA/VOMITING Oxycodone/Acetaminophen (Percocet 5/325 Tab*) 1 tab PO Q4H PRN PRN Reason: PAIN - MODERATE Pharmacy Consult (Zosyn Per Pharmacy*) 1 note FOLLOW UP .ZOSYN PER PHARMACY [facility] Potassium Chloride (Klor Con Er Tab*) 20 meq PO BID [facility] Last Admin: 01/07/20 20:38 Dose: 20 meq Objective: [] Vital Signs Temp Pulse Resp BP Pulse Ox 97.8 F 90 18 135/62 97 01/08/20 03:15 01/08/20 03:15 01/08/20 03:15 01/08/20 03:15 01/08/20 03:15 Exam Gen: looks better, 64 yo male in NAD HEENT: MMM, pale CV: RRR, III/ murmur Resp: CTA Abd: midly distended but nonTTP Ext: no edema] Assessment: [This is a 64 yo male with rectal CA currently receiving neoadjuvant FOLFOX who presented with colitis. Ddx. infectious colitis, neutropenic colitis ( typhilitis). He has been improving with supportive care, antibiotics. ] Plan: [1. Colitis - surgical consultation is appreciated - neg for C.diff and enteric pathogens. - cont Zosyn - now tolerating full diet w/o increase in diarrhea. 2. Hematology - neutropenia improving. - Anemia from chemotherapy and DEB. IV iron daily, starting now. 3. FEN. - Fluid overload, continue Lasix - Hypokalemia from diarrhea, lasix. PO K and 4 runs IV - Check Mg and replete 3. Rectal CA. C4 neoadjuvant FOLFOX following 5FU/XRT which was c/b grade 3 mucositis. Discussed plan of care - MRI pelvis today - No more chemotherapy - Consultation surgery, suspect will need to be in person. 4. Disp home but will need stable K and Mg. ]
[2020-01-08] MEDS ORDERED: Furosemide IV* 10 MG/ML 2 ML VIAL (20 MG) IV ONE (08:42)
[2020-01-08] MEDS ORDERED: Magnesium Sulfate 2 GM IV* 2 GM/50 ML BAG IVPB ONE (08:42)
[2020-01-08] MEDS: Potassium Chlor TAB* 20 MEQ TAB.ER PO SCH ×2 (09:21→20:36)
[2020-01-08] MEDS: Iron Sucrose* 200 MG in NS 0.9% 100 ML* 100 ML IVPB SCH (09:50)
[2020-01-08 11:04] LABS: Magnesium 1.4 mg/dL (1.9-2.7)
[2020-01-08] MEDS: KCL 10 MEQ/50 ML IVPREMIX* 10 MEQ/50 ML BAG IV SCH ×4 (11:59→17:57)
[2020-01-08] MEDS ORDERED: Gadoteridol* (CONTRAST) 279.3 MG/ML 10 ML IV ONE (14:00)
[2020-01-08] MEDS: Enoxaparin(*) 40 MG/0.4 ML SYR SUBCUT SCH (14:30)
[2020-01-08] MEDS ORDERED: KCL 10 MEQ/50 ML IVPREMIX* 10 MEQ/50 ML BAG ONE ×2 (16:38→17:52)
[2020-01-09] MEDS: ZOSYN 3.375 GM Q6H IVPB SCH ×8 (01:57→20:52)
[2020-01-09 06:45] LABS: Albumin 2.4 g/dL (3.2-5.2); Albumin/Globulin Ratio 0.8 (1-3); BUN/Creatinine Ratio 11.7 (8-20); EGFR African American 163.6 (>60); EGFR Non-African American 135.2 (>60); Magnesium 1.5 mg/dL (1.9-2.7); Total Bilirubin 0.8 mg/dL (0.2-1.0); Total Protein 5.4 g/dL (6.4-8.9)
[2020-01-09 06:50] LABS: Hematocrit 22 % (42-52); Hemoglobin 7.4 g/dL (14.0-18.0); Mean Corpuscular HGB Conc 33 g/dL (31-36); Mean Corpuscular Hemoglobin 32 pg (27-31); Mean Corpuscular Volume 96 fL (80-94); Red Blood Count 2.32 10^6 /uL (4.18-5.48); Red Cell Distribution Width 19 % (10-15)
[2020-01-09 07:21] LABS: ABS Eosinophils 0.1 10^3/ul (0-0.6); ABS Lymphocytes 0.3 10^3/ul (1.0-4.8); ABS Monocytes 0.5 10^3/ul (0-0.8); ABS Neutrophils 1.9 10^3/ul (1.5-7.7); Eosinophil % 4.5 %; Lymphocyte % 11.6 %; Mean Platelet Volume 8.2 fL (7.4-10.4); Nucleated Red Blood Cells % 0.7; Platelet Count 81 10^3/uL (150-450)
[2020-01-09 07:23] LABS: Polychromasia 2+
[2020-01-09 07:24] LABS: Tear Drop Cells 1+
[2020-01-09] MEDS: Potassium Chlor TAB* 20 MEQ TAB.ER PO SCH ×2 (09:00→21:02)
[2020-01-09] MEDS: Iron Sucrose* 200 MG in NS 0.9% 100 ML* 100 ML IVPB SCH (09:00)
[2020-01-09] MEDS ORDERED: Magnesium Sulf 4 GM/100 ML IV* 4,000 MG/100 ML BAG IVPB ONE (09:15)
[2020-01-09] MEDS ORDERED: Furosemide IV* 10 MG/ML 2 ML VIAL (20 MG) IV SLOW PU ONE (11:37)
--- NOTE | 2020-01-09 11:43 | PN ---
Progress Note - Progress Note Date of Service: 01/09/20 SOAP: Subjective: [Continuing to improve. Stools more formed and only ~3 times per day. No abdominal pain. Feels like he's walking on balloons. ] Objective: [ Vital Signs: Temp Pulse Resp BP Pulse Ox 97.8 F 85 17 119/65 100 01/09/20 11:16 01/09/20 11:16 01/09/20 11:16 01/09/20 11:16 01/09/20 11:16 Acetaminophen (Tylenol Tab*) 650 mg PO Q4H PRN PRN Reason: PAIN - MILD Diphenhydramine HCl (Benadryl Po*) 25 mg PO BEDTIME PRN PRN Reason: INSOMNIA Last Admin: 01/08/20 23:10 Dose: 25 mg Enoxaparin Sodium (Lovenox(*)) 40 mg SUBCUT Q24H [facility] Last Admin: 01/08/20 14:30 Dose: 40 mg Furosemide (Lasix Iv*) 20 mg IV SLOW PU ONCE ONE Stop: 01/09/20 11:38 Heparin Sodium (Porcine) (Heparin Flush Port (Ivad)) 5 ml FLUSH DAILY [facility]; Protocol Last Admin: 01/09/20 08:54 Dose: Not Given Piperacillin Sod/Tazobactam (Sod 3.375 gm/ Sodium Chloride) 100 mls @ 200 mls/ hr IVPB Q6H [facility] Last Admin: 01/09/20 08:21 Dose: 200 mls/hr Iron Sucrose 200 mg/ Sodium (Chloride) 110 mls @ 440 mls/hr IVPB DAILY [facility] Stop: 01/13/20 08:59 Last Admin: 01/09/20 09:00 Dose: 440 mls/hr Magnesium Sulfate (Magnesium Sulf 4 Gm/100 Ml Iv*) 4,000 mg in 100 mls @ 33.333 mls/hr IVPB ONCE ONE Stop: 01/09/20 12:14 Last Admin: 01/09/20 11:06 Dose: 33.333 mls/hr Potassium Chloride (Potassium Chloride 10 Meq/50 Ml Ivpremix*) 10 meq in 50 mls @ 50 mls/hr IV Q1H [facility] Stop: 01/09/20 15:59 Ondansetron HCl (Zofran Inj*) 4 mg IV Q4H PRN PRN Reason: NAUSEA/VOMITING Oxycodone/Acetaminophen (Percocet 5/325 Tab*) 1 tab PO Q4H PRN PRN Reason: PAIN - MODERATE Pharmacy Consult (Zosyn Per Pharmacy*) 1 note FOLLOW UP .ZOSYN PER PHARMACY [facility] Potassium Chloride (Klor Con Er Tab*) 20 meq PO BID [facility] Last Admin: 01/09/20 09:00 Dose: 20 meq Laboratory Results - last 24 hr 01/09/20 01/09/20 06:10 06:10 WBC 3.0 L RBC 2.32 L Hgb 7.4 L Hct 22 L MCV 96 H MCH 32 H MCHC 33 RDW 19 H Plt Count 81 L MPV 8.2 Neut % (Auto) 65.3 Lymph % (Auto) 11.6 Kay % (Auto) 17.7 Eos % (Auto) 4.5 Baso % (Auto) 0.9 Absolute Neuts (auto) 1.9 Absolute Lymphs (auto) 0.3 L Absolute Monos (auto) 0.5 Absolute Eos (auto) 0.1 Absolute Basos (auto) 0.0 Absolute Nucleated RBC 0.0 Nucleated RBC % 0.7 Polychromasia 2+ Anisocytosis 2+ Macrocytosis 1+ Tear Drop Cells 1+ Sodium 137 Potassium 3.0 L Chloride 108 Carbon Dioxide 27 Anion Gap 2 BUN 7 Creatinine 0.60 L Est GFR ( Amer) 163.6 Est GFR (Non-Af Amer) 135.2 BUN/Creatinine Ratio 11.7 Glucose 127 H Calcium 8.0 L Magnesium 1.5 L Total Bilirubin 0.80 AST 42 H ALT 24 Alkaline Phosphatase 103 Total Protein 5.4 L Albumin 2.4 L Globulin 3.0 Albumin/Globulin Ratio 0.8 L Exam Gen: chronically ill appearing, but improved 64 yo male in NAD HEENT: MMM, pale CV: RRR, III/ murmur Resp: CTA Abd: midly distended but nonTTP Ext: trace edema diffusely (anasarca) Assessment: [This is a 64 yo male with rectal CA currently receiving neoadjuvant FOLFOX who presented with colitis. Ddx. infectious colitis, neutropenic colitis ( typhilitis). He has been improving with supportive care, antibiotics. ] Plan: [1. Colitis - surgical consultation is appreciated - neg for C.diff and enteric pathogens. - cont Zosyn - now tolerating full diet w/o increase in diarrhea. 2. Hematology - neutropenia improving. - Anemia from chemotherapy and DEB. IV iron daily, starting now. - give one additional unit of PRBCs today 3. FEN. - Fluid overloaded, give additional IV lasix today - Hypomagnesemia - give additional 4g Mg today - Hypokalemia - remains deficient - give additional 40 mEq IV today 4. Rectal CA. C4 neoadjuvant FOLFOX following 5FU/XRT which was c/b grade 3 mucositis. - MRI pelvis completed - appears RUDY - reinforced plan outlined by Dr Dorman yesterday - no additional chemotherapy, plan to proceed to surgery which patient is questioning the need for if imaging is RUDY - discussed concern for local/metastatic recurrence Dispo: anticipate dc home tomorrow. Giving additional electrolytes and PRBCs today
[2020-01-09] MEDS: Enoxaparin(*) 40 MG/0.4 ML SYR SUBCUT SCH (12:11)
[2020-01-09] MEDS: KCL 10 MEQ/50 ML IVPREMIX* 10 MEQ/50 ML BAG IV SCH ×4 (14:58→19:38)
[2020-01-10] MEDS: ZOSYN 3.375 GM Q6H IVPB SCH ×6 (03:26→13:33)
[2020-01-10 05:49] LABS: ABS Eosinophils 0.2 10^3/ul (0-0.6); ABS Lymphocytes 0.4 10^3/ul (1.0-4.8); ABS Monocytes 0.5 10^3/ul (0-0.8); ABS Neutrophils 2.5 10^3/ul (1.5-7.7); Eosinophil % 4.2 %; Hematocrit 24 % (42-52); Lymphocyte % 11.4 %; Mean Corpuscular HGB Conc 34 g/dL (31-36); Mean Corpuscular Hemoglobin 32 pg (27-31); Mean Corpuscular Volume 95 fL (80-94); Mean Platelet Volume 8.6 fL (7.4-10.4); Nucleated Red Blood Cells % 0.4; Platelet Count 82 10^3/uL (150-450); Red Cell Distribution Width 19 % (10-15); White Blood Count 3.6 10^3/uL (3.5-10.8)
[2020-01-10 06:03] LABS: Albumin 2.3 g/dL (3.2-5.2); Albumin/Globulin Ratio 0.9 (1-3); BUN/Creatinine Ratio 10.2 (8-20); Calcium 7.7 mg/dL (8.6-10.3); EGFR African American 166.8 (>60); EGFR Non-African American 137.9 (>60); Globulin 2.7 g/dL (2-4); Magnesium 1.8 mg/dL (1.9-2.7); Total Bilirubin 1.3 mg/dL (0.2-1.0)
[2020-01-10] MEDS: KCL 10 MEQ/50 ML IVPREMIX* 10 MEQ/50 ML BAG IV SCH ×4 (07:25→12:38)
[2020-01-10] MEDS ORDERED: Magnesium Sulf 4 GM/100 ML IV* 4,000 MG/100 ML BAG IVPB ONE (07:46)
[2020-01-10] MEDS: Iron Sucrose* 200 MG in NS 0.9% 100 ML* 100 ML IVPB SCH (08:59)
[2020-01-10] MEDS ORDERED: Potassium Chloride* LIQUID 20 MEQ/15 ML UDC PO SCH ×2 (09:00→21:00)
[2020-01-10] MEDS ORDERED: Potassium Chloride* LIQUID 20 MEQ/15 ML UDC PO ONE (10:03)
[2020-01-10 11:48] VITALS: BP 134/64
--- NOTE | 2020-01-10 13:07 | DS ---
CC: Dr. Alex Javier; Dr. Dorman; Dr. Card* DISCHARGE SUMMARY: DATE OF ADMISSION: 01/03/20 DATE OF DISCHARGE: 01/10/20 PRIMARY CARE PROVIDER: Dr. Alex Javier. PRIMARY ONCOLOGIST AND ATTENDING PHYSICIAN: Dr. Oren Dorman* (dictated by ZOILA Issa). CONSULTING SURGEON: Dr. Benny Card. PRIMARY DISCHARGE DIAGNOSES: 1. Acute colitis - infectious versus neutropenic - testing for enteric pathogens including Clostridium difficile was negative during this hospitalization. 2. Pancytopenia secondary to chemotherapy including several days of neutropenia , all improved at the time of discharge. 3. Lower gastrointestinal bleed secondary to colitis. 4. Severe hypokalemia and hypomagnesemia secondary to gastrointestinal losses. 5. Rectal cancer, status post neoadjuvant 5-FU and concurrent radiation and 4 cycles of FOLFOX chemotherapy. DISCHARGE MEDICATIONS: 1. Amlodipine 5 mg p.o. daily. 2. Multivitamin 1 tablet p.o. daily. 3. Zofran 4 mg p.o. q.6 hours as needed for nausea and vomiting. 4. Compazine 5 mg p.o. q.6 hours as needed for nausea or vomiting. 5. Potassium chloride liquid 40 mEq p.o. twice daily. HOSPITAL IMAGIN. CT chest, abdomen, and pelvis 01/03/20 demonstrates cirrhotic liver with evidence for portal hypertension with splenomegaly, varices, and ascites. Ascites is new when compared to prior exam. There is a long segment with mural thickening of the cecum, ascending colon, and transverse colon suspicious for colitis. 2. Gallbladder ultrasound 01/03/20 shows some gallbladder wall thickening measuring up to 9 mm, however, the gallbladder is not abnormally distended and no visible cholelithiasis with a negative sonographic Martinez sign. 3. MRI of the pelvis 01/08/20 shows gross resolution of previous primary rectal tumor as well as no lymphadenopathy by size criteria. There is a small volume of ascites at the pelvis corresponds with CT findings. HOSPITAL COURSE: This is a 64-year-old gentleman with locally advanced rectal cancer, under the care of Dr. Dorman, who received neoadjuvant 5-FU and concurrent radiation, which was complicated by severe mucositis. He has since completed 4 cycles of neoadjuvant FOLFOX of the planned 8 and presented to the oncology office with several days of bloody diarrhea and profound fatigue. The patient was pancytopenic with an initial neutrophil count of 700. Chemistries were largely unremarkable with the exception of an elevated total bilirubin to 1.9. The patient subsequently underwent a CT scan of the abdomen and pelvis as he was slightly distended and quite tender to palpation. CT demonstrated some ascites, but also significant bowel wall thickening of the ascending and transverse colon consistent with a colitis. He had significant watery diarrhea , but no gross blood during his hospitalization. He was empirically treated for an infectious colitis. C. diff testing was negative and no enteric pathogens were identified on stool culture. The patient received a total of 2 units of packed red blood cells and was supplemented with IV iron for his anemia, which is likely a combination of iron deficiency secondary to blood loss as well as chemotherapy induced. The patient improved with the above supportive measures including IV fluids and antibiotics. Stools were semiformed at the time of discharge. Extensive discussion regarding recommendations and goals of care were completed during this hospitalization. Recommendations at this time are to discontinue neoadjuvant chemotherapy and proceed to resection of the primary tumor. An MRI of the pelvis was completed during this hospitalization, which shows gross resolution of the rectal tumor and no lymphadenopathy by size criteria. DISPOSITION AND FOLLOWUP PLAN: The patient is being discharged to home where he lives independently and in stable condition. He received adequate course of antibiotics during his hospitalization and does not require any additional oral antibiotics at the time of discharge. He will follow up with a home draw for labs on Wednesday and an office visit via Telemedicine on Wednesday. He is advised to call the office with any worsening symptoms. ZOILA ISSA [id number]/[facility] #: [id number] [facility]
[2020-01-10] MEDS: Enoxaparin(*) 40 MG/0.4 ML SYR SUBCUT SCH (13:33)
== END 2020-01-10 15:27 | disposition home or self-care (01) | DRG 391 ==
LOC: CHOA 10:17 → SSU 12:02
PROVIDERS: ADMIT Internal Medicine Hematology & Oncology; ATTEND Internal Medicine Hematology & Oncology
PROC: 30233N1 Transfusion of Nonautologous Red Blood Cells into Peripheral Vein, Percutaneous Approach (ICD-10-PCS; principal; 2020-01-04)
DX: A09 Infectious gastroenteritis and colitis, unspecified (principal); D61.810 Antineoplastic chemotherapy induced pancytopenia; K92.2 Gastrointestinal hemorrhage, unspecified; C20 Malignant neoplasm of rectum; R18.8 Other ascites; K52.89 Other specified noninfective gastroenteritis and colitis; K74.60 Unspecified cirrhosis of liver; H40.9 Unspecified glaucoma; D50.9 Iron deficiency anemia, unspecified; E87.70 Fluid overload, unspecified; I10 Essential (primary) hypertension; E66.9 Obesity, unspecified; I73.9 Peripheral vascular disease, unspecified; T45.1X5A Adverse effect of antineoplastic and immunosuppressive drugs, initial encounter; E87.6 Hypokalemia; E83.42 Hypomagnesemia; Z92.21 Personal history of antineoplastic chemotherapy; Y92.9 Unspecified place or not applicable; Z79.899 Other long term (current) drug therapy; Z92.3 Personal history of irradiation; Z68.36 Body mass index [BMI] 36.0-36.9, adult
CPT/HCPCS: 36415; 71260; 72197; 74177; 76705; 80048; 80051; 80053; 82272; 82728; 83540; 83550; 83735; 85025; 86850; 86900; 86901; 86922; 87040; 87045; 87046; 87493; 87899; 99223; 99232; 99233; 99239; A9270-GY; A9579; J1200; J1642; J1650; J1756; J1940; J2543; J3475; J3480; P9040; Q9967

== ENCOUNTER 2020-03-07 14:56 | Inpatient (IN) ==
[2020-03-07 17:30] LABS: ABS Lymphocytes 0.2 10^3/ul (1.0-4.8); ABS Monocytes 0.3 10^3/ul (0-0.8); Eosinophil % 1.1 %; Hematocrit 32 % (42-52); Hemoglobin 10.3 g/dL (14.0-18.0); Lymphocyte % 7.7 %; Mean Corpuscular HGB Conc 33 g/dL (31-36); Mean Corpuscular Hemoglobin 27 pg (27-31); Mean Corpuscular Volume 84 fL (80-94); Mean Platelet Volume 8.4 fL (7.4-10.4); Platelet Count 108 10^3/uL (150-450); Red Blood Count 3.78 10^6 /uL (4.18-5.48); Red Cell Distribution Width 17 % (10-15); White Blood Count 3.1 10^3/uL (3.5-10.8)
[2020-03-07 17:46] LABS: BUN/Creatinine Ratio 24.7 (8-20); Calcium 8.2 mg/dL (8.6-10.3); EGFR African American 130.5 (>60); EGFR Non-African American 107.8 (>60); Potassium 3.3 mmol/L (3.5-5.0)
[2020-03-07] MEDS ORDERED: Iohexol 300 (CONTRAST) 10 ML SDV IV ONE (18:05)
[2020-03-07] MEDS: KCL 10 MEQ/50 ML IVPREMIX 10 MEQ/50 ML BAG IV SCH ×2 (18:32→21:51)
[2020-03-07] MEDS: Latanoprost 0.005% 2.5 ml BTL BOTH EYES SCH (19:56)
[2020-03-08] MEDS: NS 0.9% 1000 ml BAG 1,000 ML IV SCH ×2 (03:31→13:22)
[2020-03-08] MEDS: Timolol 0.5% OPTH.SOL BTL BOTH EYES SCH (08:26)
[2020-03-08 13:55] LABS: ABS Eosinophils 0.2 10^3/ul (0-0.6); ABS Lymphocytes 0.4 10^3/ul (1.0-4.8); ABS Monocytes 0.5 10^3/ul (0-0.8); Eosinophil % 5.5 %; Hematocrit 30 % (42-52); Hemoglobin 9.7 g/dL (14.0-18.0); Lymphocyte % 10.3 %; Mean Corpuscular HGB Conc 32 g/dL (31-36); Mean Corpuscular Hemoglobin 27 pg (27-31); Mean Corpuscular Volume 84 fL (80-94); Mean Platelet Volume 7.8 fL (7.4-10.4); Platelet Count 116 10^3/uL (150-450); Red Blood Count 3.57 10^6 /uL (4.18-5.48); Red Cell Distribution Width 17 % (10-15); White Blood Count 3.7 10^3/uL (3.5-10.8)
[2020-03-08 14:13] LABS: Albumin 2.6 g/dL (3.2-5.2); Albumin/Globulin Ratio 0.7 (1-3); Calcium 8.6 mg/dL (8.6-10.3); EGFR African American 128.4 (>60); EGFR Non-African American 106.2 (>60); Potassium 3.7 mmol/L (3.5-5.0); Total Bilirubin 1.3 mg/dL (0.2-1.0); Total Protein 6.6 g/dL (6.4-8.9)
[2020-03-08 14:27] LABS: Carcinoembryonic Antigen 1.4 ng/mL (0.1-5.0)
[2020-03-08] MEDS: Latanoprost 0.005% 2.5 ml BTL BOTH EYES SCH (20:52)
[2020-03-09 05:42] LABS: BUN/Creatinine Ratio 32.8 (8-20); EGFR African American 151.9 (>60); EGFR Non-African American 125.5 (>60); Potassium 3.5 mmol/L (3.5-5.0)
[2020-03-09 06:20] LABS: ABS Eosinophils 0.2 10^3/ul (0-0.6); ABS Lymphocytes 0.3 10^3/ul (1.0-4.8); ABS Monocytes 0.3 10^3/ul (0-0.8); Eosinophil % 7.6 %; Hematocrit 28 % (42-52); Lymphocyte % 15.9 %; Mean Corpuscular HGB Conc 32 g/dL (31-36); Mean Corpuscular Hemoglobin 27 pg (27-31); Mean Corpuscular Volume 85 fL (80-94); Mean Platelet Volume 8.1 fL (7.4-10.4); Nucleated Red Blood Cells % 0.1; Platelet Count 87 10^3/uL (150-450); Red Blood Count 3.29 10^6 /uL (4.18-5.48); Red Cell Distribution Width 17 % (10-15); White Blood Count 2.1 10^3/uL (3.5-10.8)
[2020-03-09] MEDS: NS 0.9% 1000 ml BAG 1,000 ML IV SCH ×3 (10:17→20:38)
[2020-03-09] MEDS: Timolol 0.5% OPTH.SOL BTL BOTH EYES SCH (10:50)
[2020-03-09] MEDS: Latanoprost 0.005% 2.5 ml BTL BOTH EYES SCH (20:38)
[2020-03-10] MEDS: NS 0.9% 1000 ml BAG 1,000 ML IV SCH ×2 (06:43→16:35)
[2020-03-10] MEDS: Timolol 0.5% OPTH.SOL BTL BOTH EYES SCH (09:21)
[2020-03-10] MEDS: Latanoprost 0.005% 2.5 ml BTL BOTH EYES SCH (20:48)
[2020-03-11] MEDS: NS 0.9% 1000 ml BAG 1,000 ML IV SCH ×3 (02:28→23:30)
[2020-03-11 05:47] LABS: ABS Eosinophils 0.1 10^3/ul (0-0.6); ABS Lymphocytes 0.5 10^3/ul (1.0-4.8); ABS Monocytes 0.3 10^3/ul (0-0.8); Eosinophil % 5.8 %; Hematocrit 30 % (42-52); Hemoglobin 9.6 g/dL (14.0-18.0); Lymphocyte % 19.3 %; Mean Corpuscular HGB Conc 32 g/dL (31-36); Mean Corpuscular Hemoglobin 28 pg (27-31); Mean Corpuscular Volume 85 fL (80-94); Mean Platelet Volume 7.9 fL (7.4-10.4); Nucleated Red Blood Cells % 0.1; Platelet Count 96 10^3/uL (150-450); Red Blood Count 3.47 10^6 /uL (4.18-5.48); Red Cell Distribution Width 17 % (10-15); White Blood Count 2.3 10^3/uL (3.5-10.8)
[2020-03-11 06:01] LABS: BUN/Creatinine Ratio 21.8 (8-20); Calcium 8.2 mg/dL (8.6-10.3); EGFR African American 180.9 (>60); EGFR Non-African American 149.5 (>60)
[2020-03-11] MEDS: Timolol 0.5% OPTH.SOL BTL BOTH EYES SCH (08:39)
[2020-03-11 13:02] LABS: Activated Partial Thrombo Time 34.3 seconds (26.0-38.0); INR 1.57 (0.82-1.09)
[2020-03-11] MEDS ORDERED: Iohexol 300 (CONTRAST) 10 ML SDV IV ONE (14:22)
[2020-03-11] MEDS ORDERED: Lidocaine 2% JELLY 6 ML TOPICAL ONE ×2 (16:54→18:00)
[2020-03-11] MEDS: Latanoprost 0.005% 2.5 ml BTL BOTH EYES SCH (21:01)
[2020-03-11] MEDS: HYDROmorphone 0.5 MG/0.5 ML SYRINGE IV SLOW PU PRN (23:30)
[2020-03-12] MEDS: HYDROmorphone 0.5 MG/0.5 ML SYRINGE IV SLOW PU PRN ×3 (04:46→21:21)
[2020-03-12 04:52] LABS: ABS Eosinophils 0.2 10^3/ul (0-0.6); ABS Lymphocytes 0.5 10^3/ul (1.0-4.8); ABS Monocytes 0.3 10^3/ul (0-0.8); Eosinophil % 5.9 %; Hematocrit 32 % (42-52); Hemoglobin 10.2 g/dL (14.0-18.0); Lymphocyte % 18.2 %; Mean Corpuscular HGB Conc 32 g/dL (31-36); Mean Corpuscular Hemoglobin 27 pg (27-31); Mean Corpuscular Volume 84 fL (80-94); Mean Platelet Volume 7.3 fL (7.4-10.4); Nucleated Red Blood Cells % 0.2; Platelet Count 106 10^3/uL (150-450); Red Blood Count 3.73 10^6 /uL (4.18-5.48); Red Cell Distribution Width 17 % (10-15); White Blood Count 2.9 10^3/uL (3.5-10.8)
[2020-03-12 05:06] LABS: Albumin 2.7 g/dL (3.2-5.2); Albumin/Globulin Ratio 0.7 (1-3); Calcium 8.5 mg/dL (8.6-10.3); EGFR African American 173.6 (>60); EGFR Non-African American 143.5 (>60); Globulin 4.1 g/dL (2-4); Magnesium 1.6 mg/dL (1.9-2.7); Total Bilirubin 0.8 mg/dL (0.2-1.0); Total Protein 6.8 g/dL (6.4-8.9)
[2020-03-12] MEDS ORDERED: Phytonadione SUBCUT/IM Adult 10 MG/ML AMP (IM or SQ not preferred route) SUBCUT ONE (08:58)
[2020-03-12] MEDS ORDERED: Magnesium Sulf 4 GM/100 ML IV 4,000 MG/100 ML BAG IVPB ONE (08:58)
[2020-03-12] MEDS: Timolol 0.5% OPTH.SOL BTL BOTH EYES SCH (09:23)
[2020-03-12] MEDS ORDERED: Phytonadione 10 mg in 50 mL NS over 30 min IV ONE (10:00)
[2020-03-12] MEDS: NS 0.9% 1000 ml BAG 1,000 ML IV SCH ×2 (11:08→21:14)
[2020-03-12] MEDS: Latanoprost 0.005% 2.5 ml BTL BOTH EYES SCH (21:18)
[2020-03-13] MEDS: HYDROmorphone 0.5 MG/0.5 ML SYRINGE IV SLOW PU PRN ×7 (00:25→22:12)
[2020-03-13] MEDS: NS 0.9% 1000 ml BAG 1,000 ML IV SCH (07:32)
[2020-03-13] MEDS: Timolol 0.5% OPTH.SOL BTL BOTH EYES SCH (09:57)
[2020-03-13 10:27] LABS: ABS Eosinophils 0.2 10^3/ul (0-0.6); ABS Lymphocytes 0.6 10^3/ul (1.0-4.8); ABS Monocytes 0.5 10^3/ul (0-0.8); Eosinophil % 4.9 %; Hematocrit 33 % (42-52); Hemoglobin 10.5 g/dL (14.0-18.0); Lymphocyte % 13.8 %; Mean Corpuscular HGB Conc 32 g/dL (31-36); Mean Corpuscular Hemoglobin 28 pg (27-31); Mean Corpuscular Volume 85 fL (80-94); Mean Platelet Volume 7.5 fL (7.4-10.4); Nucleated Red Blood Cells % 0.1; Platelet Count 116 10^3/uL (150-450); Red Blood Count 3.83 10^6 /uL (4.18-5.48); Red Cell Distribution Width 17 % (10-15); White Blood Count 4.2 10^3/uL (3.5-10.8)
[2020-03-13 10:34] LABS: INR 1.47 (0.82-1.09)
[2020-03-13 10:49] LABS: Albumin 2.9 g/dL (3.2-5.2); Albumin/Globulin Ratio 0.7 (1-3); BUN/Creatinine Ratio 13.2 (8-20); Calcium 8.8 mg/dL (8.6-10.3); EGFR African American 188.8 (>60); Globulin 4.3 g/dL (2-4); Magnesium 1.8 mg/dL (1.9-2.7); Phosphorus 2.9 mg/dL (2.5-5.0); Potassium 3.9 mmol/L (3.5-5.0); Total Bilirubin 1.1 mg/dL (0.2-1.0); Total Protein 7.2 g/dL (6.4-8.9)
[2020-03-13] MEDS ORDERED: TPN 24 HR with Dextrose 50% Water 500 ML, Amino Acid Infusion 10% 850 ML, Sterile Water... CENTR SCH (17:00)
[2020-03-13] MEDS: Latanoprost 0.005% 2.5 ml BTL BOTH EYES SCH (21:57)
[2020-03-14] MEDS: HYDROmorphone 0.5 MG/0.5 ML SYRINGE IV SLOW PU PRN ×4 (03:21→21:11)
[2020-03-14 07:12] LABS: Albumin 2.5 g/dL (3.2-5.2); Albumin/Globulin Ratio 0.7 (1-3); Calcium 8.4 mg/dL (8.6-10.3); EGFR African American 188.8 (>60); Globulin 3.8 g/dL (2-4); Magnesium 1.6 mg/dL (1.9-2.7); Phosphorus 1.9 mg/dL (2.5-5.0); Potassium 3.5 mmol/L (3.5-5.0); Total Bilirubin 0.8 mg/dL (0.2-1.0); Total Protein 6.3 g/dL (6.4-8.9)
[2020-03-14] MEDS: Timolol 0.5% OPTH.SOL BTL BOTH EYES SCH (10:42)
[2020-03-14] MEDS ORDERED: TPN 24 HR with Dextrose 50% Water 500 ML, Amino Acid Infusion 10% 850 ML, Sterile Water... CENTR SCH ×2 (12:35→17:01)
[2020-03-14] MEDS ORDERED: Phytonadione IV (Adult) 10 MG/ML 1 ML AMP IV ONE (21:00)
[2020-03-14] MEDS: Latanoprost 0.005% 2.5 ml BTL BOTH EYES SCH (21:11)
[2020-03-14] MEDS ORDERED: Phytonadione IV (Adult) 5 MG in NS 0.9% 50 ML 50 ML IV ONE (22:00)
[2020-03-15] MEDS: HYDROmorphone 0.5 MG/0.5 ML SYRINGE IV SLOW PU PRN ×5 (00:40→23:37)
[2020-03-15 06:26] LABS: INR 1.6 (0.82-1.09)
[2020-03-15 06:35] LABS: Albumin 2.4 g/dL (3.2-5.2); Albumin/Globulin Ratio 0.6 (1-3); Calcium 8.2 mg/dL (8.6-10.3); EGFR Non-African American 193.4 (>60); Globulin 3.7 g/dL (2-4); Magnesium 1.7 mg/dL (1.9-2.7); Potassium 3.5 mmol/L (3.5-5.0); Total Bilirubin 0.8 mg/dL (0.2-1.0); Total Protein 6.1 g/dL (6.4-8.9)
[2020-03-15] MEDS: Timolol 0.5% OPTH.SOL BTL BOTH EYES SCH (07:59)
[2020-03-15] MEDS: Lactated Ringers 1000 ml BAG 1,000 ML IV SCH ×2 (08:39→17:38)
[2020-03-15] MEDS ORDERED: fentaNYL 100 mcg/2 ml 50 MCG/ML VIAL ONE ×2 (09:13→13:25)
[2020-03-15] MEDS ORDERED: Midazolam 2 mg/2 ml VIAL 1 mg/ml 2 ml VIAL (2 mg) ONE (09:13)
[2020-03-15] MEDS ORDERED: Propofol 10 MG/ML 20 ML BTL ONE ×2 (09:14→17:25)
[2020-03-15] MEDS ORDERED: Rocuronium 50 mg VIAL 10 mg/ml 5 ml VIAL (50 mg) ONE ×2 (09:15→12:11)
[2020-03-15] MEDS ORDERED: Glycopyrrolate IV 0.2 MG/ML 1 ML VIAL ONE ×2 (09:17→17:21)
[2020-03-15] MEDS ORDERED: fentaNYL 100 mcg/2 ml 50 MCG/ML VIAL IV PRN (09:49)
[2020-03-15] MEDS ORDERED: Naloxone 0.4 mg VIAL 0.4 mg/ml 1 ml VIAL IV PRN (09:49)
[2020-03-15] MEDS ORDERED: Ondansetron 4 mg VIAL 2 MG/ML 2 ml VIAL IV PRN (09:49)
[2020-03-15] MEDS ORDERED: Bupivacaine 0.25% EPI 200,000 30 ML SDV ONE (10:00)
[2020-03-15] MEDS ORDERED: Etomidate 20 mg/10 ml 2 MG/ML 10 ml VIAL ONE (10:17)
[2020-03-15] MEDS ORDERED: ceFAZolin 2 GM PREMIX in ORs 2 GM/50 ML BAG ONE ×2 (10:19→14:37)
[2020-03-15] MEDS ORDERED: Phenylephrine 40 mcg/mL 10mL (400mcg) SYRINGE ONE (10:56)
[2020-03-15] MEDS ORDERED: Ondansetron 4 mg VIAL 2 MG/ML 2 ml VIAL ONE (12:35)
[2020-03-15] MEDS ORDERED: Dexamethasone IV 4 MG/ML VIAL 1 ml VIAL ONE (12:35)
[2020-03-15] MEDS ORDERED: Succinylcholine 200 mg VIAL 20 mg/ml 10 ml VIAL (200 mg) ONE (14:27)
[2020-03-15] MEDS ORDERED: HYDROmorphone 1 MG/1 ML SYRINGE ONE (15:01)
[2020-03-15] MEDS ORDERED: Phenylephrine IV 10 MG/ML 1 ml VIAL ONE (15:18)
[2020-03-15] MEDS ORDERED: Naloxone 4 mg VIAL 0.4 MG/ML 10 ml VIAL (4 mg) ONE (15:48)
[2020-03-15] MEDS ORDERED: Dexmedetomidine 1,000 MCG in NS 0.9% 250 ml 240 ML IV SCH (17:00)
[2020-03-15] MEDS ORDERED: EPHEDrine (Pressors) 50 MG/ML VIAL ONE (17:18)
[2020-03-15 17:37] LABS: ABS Lymphocytes 0.3 10^3/ul (1.0-4.8); ABS Monocytes 0.1 10^3/ul (0-0.8); Eosinophil % 0.9 %; Hematocrit 34 % (42-52); Hemoglobin 10.9 g/dL (14.0-18.0); Lymphocyte % 12.5 %; Mean Corpuscular HGB Conc 33 g/dL (31-36); Mean Corpuscular Hemoglobin 28 pg (27-31); Mean Corpuscular Volume 85 fL (80-94); Mean Platelet Volume 8.1 fL (7.4-10.4); Nucleated Red Blood Cells % 0.2; Platelet Count 101 10^3/uL (150-450); Red Blood Count 3.94 10^6 /uL (4.18-5.48); Red Cell Distribution Width 17 % (10-15); White Blood Count 2.2 10^3/uL (3.5-10.8)
[2020-03-15] MEDS: TPN 24 HR with Dextrose 50% Water 500 ML, Amino Acid Infusion 10% 850 ML, Sterile Water... CENTR SCH (17:57)
[2020-03-15 18:10] LABS: Albumin 2.5 g/dL (3.2-5.2); Albumin/Globulin Ratio 0.7 (1-3); BUN/Creatinine Ratio 24.5 (8-20); Calcium 8.5 mg/dL (8.6-10.3); EGFR African American 206.7 (>60); EGFR Non-African American 170.8 (>60); Globulin 3.6 g/dL (2-4); Magnesium 1.6 mg/dL (1.9-2.7); Total Bilirubin 1.4 mg/dL (0.2-1.0); Total Protein 6.1 g/dL (6.4-8.9)
[2020-03-15] MEDS: Latanoprost 0.005% 2.5 ml BTL BOTH EYES SCH (20:30)
[2020-03-16] MEDS ORDERED: Dextrose 50% Syringe 50 ml 25 GM/50 ML SYRINGE IV PUSH PRN (00:57)
[2020-03-16] MEDS: Insulin LISPRO 100 units/ml(*) SUBCUT SCH ×7 (01:10→23:46)
[2020-03-16] MEDS ORDERED: Insulin LISPRO 100 units/ml(*) SUBCUT ONE (01:11)
[2020-03-16] MEDS: Lactated Ringers 1000 ml BAG 1,000 ML IV SCH (01:24)
[2020-03-16] MEDS: HYDROmorphone 0.5 MG/0.5 ML SYRINGE IV SLOW PU PRN ×2 (03:56→09:04)
[2020-03-16 05:21] LABS: INR 1.61 (0.82-1.09)
[2020-03-16 05:32] LABS: ALT 9 U/L (7-52); AST 23 U/L (13-39); Albumin 2.3 g/dL (3.2-5.2); Albumin/Globulin Ratio 0.7 (1-3); Alkaline Phosphatase 52 U/L (34-104); BUN/Creatinine Ratio 24.5 (8-20); Blood Urea Nitrogen 12 mg/dL (6-24); CO2 Carbon Dioxide 32 mmol/L (22-32); Calcium 8.1 mg/dL (8.6-10.3); Chloride 109 mmol/L (101-111); Cholesterol 67 mg/dL; EGFR African American 206.7 (>60); EGFR Non-African American 170.8 (>60); Globulin 3.1 g/dL (2-4); Glucose 234 mg/dL (70-100); Magnesium 1.7 mg/dL (1.9-2.7); Phosphorus 2.5 mg/dL (2.5-5.0); Potassium 4.2 mmol/L (3.5-5.0); Sodium 141 mmol/L (135-145); Total Protein 5.4 g/dL (6.4-8.9); Triglycerides 61 mg/dL
[2020-03-16 05:55] LABS: ABS Lymphocytes 0.3 10^3/ul (1.0-4.8); ABS Monocytes 0.3 10^3/ul (0-0.8); Hematocrit 32 % (42-52); Hemoglobin 10.2 g/dL (14.0-18.0); Lymphocyte % 5.7 %; Mean Corpuscular HGB Conc 32 g/dL (31-36); Mean Corpuscular Hemoglobin 28 pg (27-31); Mean Corpuscular Volume 86 fL (80-94); Mean Platelet Volume 7.9 fL (7.4-10.4); Platelet Count 80 10^3/uL (150-450); Red Blood Count 3.67 10^6 /uL (4.18-5.48); Red Cell Distribution Width 17 % (10-15); White Blood Count 5.6 10^3/uL (3.5-10.8)
[2020-03-16] MEDS ORDERED: Magnesium Sulfate 2 gm BAG 2 GM/50 ML BAG IVPB ONE (07:12)
[2020-03-16] MEDS ORDERED: Lactated Ringers 1000 ml BAG 1,000 ML IV SCH (07:12)
[2020-03-16] MEDS: Timolol 0.5% OPTH.SOL BTL BOTH EYES SCH (09:00)
[2020-03-16] MEDS ORDERED: HYDROmorphone PCA 20 MG/20 ML PCA.SYRING PCA SCH (10:00)
[2020-03-16] MEDS: TPN 24 HR with Dextrose 50% Water 500 ML, Amino Acid Infusion 10% 850 ML, Sterile Water... CENTR SCH (17:15)
[2020-03-16 19:54] LABS: Hematocrit 32 % (42-52); Mean Corpuscular HGB Conc 32 g/dL (31-36); Mean Corpuscular Hemoglobin 28 pg (27-31); Mean Corpuscular Volume 87 fL (80-94); Mean Platelet Volume 8.3 fL (7.4-10.4); Platelet Count 88 10^3/uL (150-450); Red Blood Count 3.64 10^6 /uL (4.18-5.48); Red Cell Distribution Width 17 % (10-15); White Blood Count 7.9 10^3/uL (3.5-10.8)
[2020-03-16 20:23] LABS: ABS Lymphocytes 0.5 10^3/ul (1.0-4.8); ABS Monocytes 0.9 10^3/ul (0-0.8); Eosinophil % 0.2 %; Lymphocyte % 6.2 %; Nucleated Red Blood Cells % 0.1
[2020-03-16] MEDS ORDERED: NS 0.9% 500 ml BAG 500 ML IV ONE (20:34)
[2020-03-16] MEDS: Latanoprost 0.005% 2.5 ml BTL BOTH EYES SCH (21:20)
[2020-03-16 21:25] LABS: ALT 9 U/L (7-52); AST 21 U/L (13-39); Albumin 2.3 g/dL (3.2-5.2); Albumin/Globulin Ratio 0.6 (1-3); Alkaline Phosphatase 56 U/L (34-104); BUN/Creatinine Ratio 33.3 (8-20); Blood Urea Nitrogen 14 mg/dL (6-24); CO2 Carbon Dioxide 36 mmol/L (22-32); Calcium 8.4 mg/dL (8.6-10.3); Chloride 108 mmol/L (101-111); EGFR African American 246.9 (>60); EGFR Non-African American 204.1 (>60); Globulin 3.6 g/dL (2-4); Glucose 140 mg/dL (70-100); Potassium 4.6 mmol/L (3.5-5.0); Sodium 141 mmol/L (135-145); Total Protein 5.9 g/dL (6.4-8.9)
[2020-03-17] MEDS: Insulin LISPRO 100 units/ml(*) SUBCUT SCH ×5 (04:30→21:08)
[2020-03-17 06:06] LABS: ABS Lymphocytes 0.3 10^3/ul (1.0-4.8); ABS Monocytes 0.4 10^3/ul (0-0.8); Eosinophil % 0.7 %; Hematocrit 26 % (42-52); Hemoglobin 8.4 g/dL (14.0-18.0); Lymphocyte % 9.4 %; Mean Corpuscular HGB Conc 32 g/dL (31-36); Mean Corpuscular Hemoglobin 27 pg (27-31); Mean Corpuscular Volume 87 fL (80-94); Mean Platelet Volume 8.3 fL (7.4-10.4); Nucleated Red Blood Cells % 0.1; Platelet Count 61 10^3/uL (150-450); Red Blood Count 3.06 10^6 /uL (4.18-5.48); Red Cell Distribution Width 17 % (10-15); White Blood Count 3.7 10^3/uL (3.5-10.8)
[2020-03-17 06:12] LABS: ALT 7 U/L (7-52); AST 18 U/L (13-39); Albumin 2.2 g/dL (3.2-5.2); Albumin/Globulin Ratio 0.7 (1-3); Alkaline Phosphatase 58 U/L (34-104); BUN/Creatinine Ratio 31.1 (8-20); Blood Urea Nitrogen 14 mg/dL (6-24); CO2 Carbon Dioxide 38 mmol/L (22-32); Calcium 8.2 mg/dL (8.6-10.3); Chloride 108 mmol/L (101-111); Cholesterol 59 mg/dL; EGFR Non-African American 188.5 (>60); Globulin 3.3 g/dL (2-4); Glucose 142 mg/dL (70-100); Magnesium 1.9 mg/dL (1.9-2.7); Phosphorus 1.3 mg/dL (2.5-5.0); Potassium 4.4 mmol/L (3.5-5.0); Sodium 142 mmol/L (135-145); Total Protein 5.5 g/dL (6.4-8.9); Triglycerides 45 mg/dL
[2020-03-17 06:13] LABS: Prealbumin 4 mg/dL (18-38)
[2020-03-17] MEDS ORDERED: Phytonadione IV (Adult) 10 MG in NS 0.9% 50 ML 50 ML IV ONE (08:27)
[2020-03-17] MEDS: Timolol 0.5% OPTH.SOL BTL BOTH EYES SCH (08:53)
[2020-03-17 09:55] LABS: Activated Partial Thrombo Time 33.4 seconds (26.0-38.0); Fibrinogen 256.8 mg/dL (110.8-404.3)
[2020-03-17 10:33] LABS: INR 1.56 (0.82-1.09)
[2020-03-17 10:58] LABS: ABS Lymphocytes 0.3 10^3/ul (1.0-4.8); ABS Monocytes 0.4 10^3/ul (0-0.8); Eosinophil % 1.4 %; Hematocrit 26 % (42-52); Hemoglobin 8.2 g/dL (14.0-18.0); Lymphocyte % 7.9 %; Mean Corpuscular HGB Conc 32 g/dL (31-36); Mean Corpuscular Hemoglobin 27 pg (27-31); Mean Corpuscular Volume 87 fL (80-94); Mean Platelet Volume 8.6 fL (7.4-10.4); Nucleated Red Blood Cells % 0.1; Platelet Count 59 10^3/uL (150-450); Red Blood Count 3.01 10^6 /uL (4.18-5.48); Red Cell Distribution Width 18 % (10-15); White Blood Count 3.5 10^3/uL (3.5-10.8)
[2020-03-17 11:44] LABS: Urine Appearance Clear; Urine Bilirubin Negative (Negative); Urine Blood 1+ (Negative); Urine Color Yellow; Urine Glucose Negative (Negative); Urine Ketones Negative (Negative); Urine Nitrite Negative (Negative); Urine Protein Negative (Negative); Urine Specific Gravity 1.015 (1.010-1.030); Urine Urobilinogen Negative (Negative)
[2020-03-17 11:45] LABS: Urine Bacteria Absent (Absent); Urine Red Blood Cell 3+(>10/hpf) (Absent); Urine White Blood Cell Trace(0-5/hpf) (Absent)
[2020-03-17 14:38] LABS: ABS Eosinophils 0.1 10^3/ul (0-0.6); ABS Lymphocytes 0.4 10^3/ul (1.0-4.8); ABS Monocytes 0.4 10^3/ul (0-0.8); Eosinophil % 1.9 %; Hematocrit 26 % (42-52); Hemoglobin 8.4 g/dL (14.0-18.0); Lymphocyte % 9.4 %; Mean Corpuscular HGB Conc 33 g/dL (31-36); Mean Corpuscular Hemoglobin 28 pg (27-31); Mean Corpuscular Volume 87 fL (80-94); Mean Platelet Volume 8.2 fL (7.4-10.4); Nucleated Red Blood Cells % 0.1; Platelet Count 62 10^3/uL (150-450); Red Blood Count 2.97 10^6 /uL (4.18-5.48); Red Cell Distribution Width 17 % (10-15); White Blood Count 4.1 10^3/uL (3.5-10.8)
[2020-03-17] MEDS: HYDROmorphone 0.5 MG/0.5 ML SYRINGE IV SLOW PU PRN ×2 (16:09→22:04)
[2020-03-17] MEDS ORDERED: Lactulose 300 ML for PR 10 GM/15 ML BTL PR SCH (17:00)
[2020-03-17] MEDS: TPN 24 HR with Dextrose 50% Water 500 ML, Amino Acid Infusion 10% 850 ML, Sterile Water... CENTR SCH (17:15)
[2020-03-17] MEDS ORDERED: Furosemide 20 mg/2 ml IV VIAL ONE (18:17)
[2020-03-17] MEDS ORDERED: Furosemide 20 mg/2 ml IV VIAL IV ONE (18:30)
[2020-03-17] MEDS: Latanoprost 0.005% 2.5 ml BTL BOTH EYES SCH (21:11)
[2020-03-18] MEDS: Insulin LISPRO 100 units/ml(*) SUBCUT SCH ×7 (00:49→23:52)
[2020-03-18] MEDS: HYDROmorphone 0.5 MG/0.5 ML SYRINGE IV SLOW PU PRN ×4 (02:34→21:47)
[2020-03-18 06:13] LABS: Activated Partial Thrombo Time 20.1 seconds (26.0-38.0); Fibrinogen 259.6 mg/dL (110.8-404.3); INR 1.37 (0.82-1.09)
[2020-03-18 07:25] LABS: ABS Eosinophils 0.1 10^3/ul (0-0.6); ABS Lymphocytes 0.3 10^3/ul (1.0-4.8); ABS Monocytes 0.2 10^3/ul (0-0.8); Eosinophil % 3.5 %; Hematocrit 25 % (42-52); Hemoglobin 8.1 g/dL (14.0-18.0); Mean Corpuscular HGB Conc 32 g/dL (31-36); Mean Corpuscular Hemoglobin 28 pg (27-31); Mean Corpuscular Volume 86 fL (80-94); Mean Platelet Volume 8.5 fL (7.4-10.4); Nucleated Red Blood Cells % 0.1; Platelet Count 50 10^3/uL (150-450); Red Blood Count 2.93 10^6 /uL (4.18-5.48); Red Cell Distribution Width 18 % (10-15); White Blood Count 2.3 10^3/uL (3.5-10.8)
[2020-03-18 07:31] LABS: Activated Partial Thrombo Time 33.1 seconds (26.0-38.0); INR 1.43 (0.82-1.09)
[2020-03-18] MEDS: Timolol 0.5% OPTH.SOL BTL BOTH EYES SCH (07:53)
[2020-03-18] MEDS ORDERED: Potassium Phosphate IV 15 MMOLE in NS 0.9% 250 ml 250 ML IVPB ONE (13:00)
[2020-03-18] MEDS: TPN 24 HR with Dextrose 50% Water 500 ML, Amino Acid Infusion 10% 850 ML, Sterile Water... CENTR SCH (17:49)
[2020-03-18] MEDS: Latanoprost 0.005% 2.5 ml BTL BOTH EYES SCH (19:29)
[2020-03-19] MEDS: HYDROmorphone 0.5 MG/0.5 ML SYRINGE IV SLOW PU PRN ×8 (01:31→23:44)
[2020-03-19] MEDS ORDERED: Phenol 1.4% Throat Spray 177 ml BTL MT PRN (02:50)
[2020-03-19] MEDS: Insulin LISPRO 100 units/ml(*) SUBCUT SCH ×3 (04:51→12:38)
[2020-03-19 05:45] LABS: ABS Eosinophils 0.1 10^3/ul (0-0.6); ABS Lymphocytes 0.2 10^3/ul (1.0-4.8); ABS Monocytes 0.2 10^3/ul (0-0.8); Eosinophil % 5.9 %; Hematocrit 24 % (42-52); Hemoglobin 7.7 g/dL (14.0-18.0); Lymphocyte % 12.1 %; Mean Corpuscular HGB Conc 33 g/dL (31-36); Mean Corpuscular Hemoglobin 28 pg (27-31); Mean Corpuscular Volume 85 fL (80-94); Mean Platelet Volume 8.6 fL (7.4-10.4); Nucleated Red Blood Cells % 0.1; Platelet Count 45 10^3/uL (150-450); Red Blood Count 2.79 10^6 /uL (4.18-5.48); Red Cell Distribution Width 18 % (10-15); White Blood Count 1.7 10^3/uL (3.5-10.8)
[2020-03-19 05:50] LABS: INR 1.46 (0.82-1.09)
[2020-03-19 06:08] LABS: Blood Urea Nitrogen 18 mg/dL (6-24); CO2 Carbon Dioxide 32 mmol/L (22-32); Calcium 8.4 mg/dL (8.6-10.3); Chloride 108 mmol/L (101-111); EGFR African American 364.1 (>60); EGFR Non-African American 300.9 (>60); Glucose 140 mg/dL (70-100); Phosphorus 1.7 mg/dL (2.5-5.0); Potassium 4.1 mmol/L (3.5-5.0); Sodium 140 mmol/L (135-145)
[2020-03-19] MEDS: Timolol 0.5% OPTH.SOL BTL BOTH EYES SCH (11:44)
[2020-03-19 12:14] LABS: ALT 8 U/L (7-52); AST 22 U/L (13-39); Albumin 2.2 g/dL (3.2-5.2); Albumin/Globulin Ratio 0.7 (1-3); Alkaline Phosphatase 57 U/L (34-104); Cholesterol 54 mg/dL; Globulin 3.3 g/dL (2-4); Magnesium 1.8 mg/dL (1.9-2.7); Total Protein 5.5 g/dL (6.4-8.9); Triglycerides 51 mg/dL
[2020-03-19 12:17] LABS: Prealbumin 4 mg/dL (18-38)
[2020-03-19] MEDS ORDERED: Potassium Phosphate IV 15 MMOLE in NS 0.9% 250 ml 250 ML IVPB ONE (12:45)
[2020-03-19] MEDS: TPN 24 HR with Dextrose 50% Water 500 ML, Amino Acid Infusion 10% 850 ML, Sterile Water... CENTR SCH (17:47)
[2020-03-19] MEDS: Latanoprost 0.005% 2.5 ml BTL BOTH EYES SCH (19:55)
[2020-03-20] MEDS: HYDROmorphone 0.5 MG/0.5 ML SYRINGE IV SLOW PU PRN ×5 (02:20→23:09)
[2020-03-20 05:58] LABS: ALT 11 U/L (7-52); AST 33 U/L (13-39); Albumin 2.2 g/dL (3.2-5.2); Albumin/Globulin Ratio 0.6 (1-3); Alkaline Phosphatase 68 U/L (34-104); BUN/Creatinine Ratio 48.7 (8-20); Blood Urea Nitrogen 19 mg/dL (6-24); CO2 Carbon Dioxide 37 mmol/L (22-32); Calcium 8.4 mg/dL (8.6-10.3); Chloride 106 mmol/L (101-111); EGFR Non-African American 222.3 (>60); Globulin 3.6 g/dL (2-4); Glucose 133 mg/dL (70-100); Potassium 4.1 mmol/L (3.5-5.0); Sodium 143 mmol/L (135-145); Total Protein 5.8 g/dL (6.4-8.9)
[2020-03-20 05:59] LABS: ABS Eosinophils 0.1 10^3/ul (0-0.6); ABS Lymphocytes 0.3 10^3/ul (1.0-4.8); ABS Monocytes 0.3 10^3/ul (0-0.8); Hematocrit 25 % (42-52); Hemoglobin 8.2 g/dL (14.0-18.0); Lymphocyte % 12.8 %; Mean Corpuscular HGB Conc 33 g/dL (31-36); Mean Corpuscular Hemoglobin 28 pg (27-31); Mean Corpuscular Volume 85 fL (80-94); Mean Platelet Volume 8.8 fL (7.4-10.4); Nucleated Red Blood Cells % 0.3; Platelet Count 50 10^3/uL (150-450); Red Blood Count 2.94 10^6 /uL (4.18-5.48); Red Cell Distribution Width 18 % (10-15)
[2020-03-20 06:05] LABS: INR 1.42 (0.82-1.09)
[2020-03-20] MEDS: Timolol 0.5% OPTH.SOL BTL BOTH EYES SCH (10:37)
[2020-03-20] MEDS: TPN 24 HR with Dextrose 50% Water 500 ML, Amino Acid Infusion 10% 850 ML, Sterile Water... CENTR SCH (17:36)
[2020-03-20] MEDS: Latanoprost 0.005% 2.5 ml BTL BOTH EYES SCH (23:27)
[2020-03-21] MEDS: HYDROmorphone 0.5 MG/0.5 ML SYRINGE IV SLOW PU PRN ×4 (04:25→21:49)
[2020-03-21] MEDS: Timolol 0.5% OPTH.SOL BTL BOTH EYES SCH (08:27)
[2020-03-21 09:46] LABS: ABS Eosinophils 0.2 10^3/ul (0-0.6); ABS Lymphocytes 0.3 10^3/ul (1.0-4.8); ABS Monocytes 0.4 10^3/ul (0-0.8); Eosinophil % 5.3 %; Hematocrit 26 % (42-52); Hemoglobin 8.4 g/dL (14.0-18.0); Lymphocyte % 9.2 %; Mean Corpuscular HGB Conc 33 g/dL (31-36); Mean Corpuscular Hemoglobin 28 pg (27-31); Mean Corpuscular Volume 85 fL (80-94); Mean Platelet Volume 9.2 fL (7.4-10.4); Nucleated Red Blood Cells % 0.1; Platelet Count 67 10^3/uL (150-450); Red Blood Count 3.03 10^6 /uL (4.18-5.48); Red Cell Distribution Width 19 % (10-15); White Blood Count 2.9 10^3/uL (3.5-10.8)
[2020-03-21 12:25] LABS: Albumin 2.2 g/dL (3.2-5.2); Calcium 8.6 mg/dL (8.6-10.3); Potassium 4.2 mmol/L (3.5-5.0)
[2020-03-21 12:31] LABS: Albumin/Globulin Ratio 0.6 (1-3); BUN/Creatinine Ratio 46.5 (8-20); EGFR African American 240.3 (>60); EGFR Non-African American 198.6 (>60); Globulin 3.7 g/dL (2-4); Total Protein 5.9 g/dL (6.4-8.9)
[2020-03-21] MEDS: TPN 24 HR with Dextrose 50% Water 500 ML, Amino Acid Infusion 10% 850 ML, Sterile Water... CENTR SCH (16:52)
[2020-03-21] MEDS: Latanoprost 0.005% 2.5 ml BTL BOTH EYES SCH (21:55)
[2020-03-22] MEDS: HYDROmorphone 0.5 MG/0.5 ML SYRINGE IV SLOW PU PRN ×4 (02:18→22:13)
[2020-03-22 06:54] LABS: Albumin 2.1 g/dL (3.2-5.2); Albumin/Globulin Ratio 0.6 (1-3); BUN/Creatinine Ratio 48.8 (8-20); Calcium 8.4 mg/dL (8.6-10.3); EGFR African American 240.3 (>60); EGFR Non-African American 198.6 (>60); Globulin 3.8 g/dL (2-4); Magnesium 2.1 mg/dL (1.9-2.7); Phosphorus 2.4 mg/dL (2.5-5.0); Potassium 4.2 mmol/L (3.5-5.0); Total Bilirubin 2.1 mg/dL (0.2-1.0); Total Protein 5.9 g/dL (6.4-8.9)
[2020-03-22] MEDS: Timolol 0.5% OPTH.SOL BTL BOTH EYES SCH (08:29)
[2020-03-22 09:27] LABS: Indirect Bilirubin 0.7 mg/dL (0.3-1.0)
[2020-03-22 12:25] LABS: Albumin/Globulin Ratio 0.5 (1-3); BUN/Creatinine Ratio 51.2 (8-20); Calcium 8.3 mg/dL (8.6-10.3); EGFR African American 240.3 (>60); EGFR Non-African American 198.6 (>60); Globulin 3.7 g/dL (2-4); Phosphorus 2.3 mg/dL (2.5-5.0); Potassium 4.3 mmol/L (3.5-5.0); Total Bilirubin 2.1 mg/dL (0.2-1.0); Total Protein 5.7 g/dL (6.4-8.9)
[2020-03-22] MEDS: TPN 24 HR with Dextrose 50% Water 500 ML, Amino Acid Infusion 10% 850 ML, Sterile Water... CENTR SCH (16:38)
[2020-03-22] MEDS: Latanoprost 0.005% 2.5 ml BTL BOTH EYES SCH (20:56)
[2020-03-22] MEDS: Ondansetron 4 mg VIAL 2 MG/ML 2 ml VIAL IV PRN (22:17)
[2020-03-23] MEDS: HYDROmorphone 0.5 MG/0.5 ML SYRINGE IV SLOW PU PRN ×4 (02:09→20:48)
[2020-03-23 06:29] LABS: ABS Eosinophils 0.2 10^3/ul (0-0.6); ABS Lymphocytes 0.3 10^3/ul (1.0-4.8); ABS Monocytes 0.5 10^3/ul (0-0.8); Hematocrit 25 % (42-52); Hemoglobin 8.1 g/dL (14.0-18.0); Lymphocyte % 11.8 %; Mean Corpuscular HGB Conc 32 g/dL (31-36); Mean Corpuscular Hemoglobin 27 pg (27-31); Mean Corpuscular Volume 84 fL (80-94); Mean Platelet Volume 9.9 fL (7.4-10.4); Nucleated Red Blood Cells % 0.2; Platelet Count 78 10^3/uL (150-450); Red Blood Count 2.96 10^6 /uL (4.18-5.48); Red Cell Distribution Width 18 % (10-15); White Blood Count 2.7 10^3/uL (3.5-10.8)
[2020-03-23 06:33] LABS: INR 1.52 (0.82-1.09)
[2020-03-23 06:47] LABS: ALT 23 U/L (7-52); AST 59 U/L (13-39); Albumin/Globulin Ratio 0.5 (1-3); Alkaline Phosphatase 99 U/L (34-104); BUN/Creatinine Ratio 45.7 (8-20); Blood Urea Nitrogen 21 mg/dL (6-24); CO2 Carbon Dioxide 28 mmol/L (22-32); Calcium 8.1 mg/dL (8.6-10.3); Chloride 108 mmol/L (101-111); EGFR African American 222.3 (>60); EGFR Non-African American 183.7 (>60); Globulin 3.8 g/dL (2-4); Glucose 126 mg/dL (70-100); Potassium 4.3 mmol/L (3.5-5.0); Sodium 135 mmol/L (135-145); Total Protein 5.8 g/dL (6.4-8.9)
[2020-03-23] MEDS: Timolol 0.5% OPTH.SOL BTL BOTH EYES SCH (10:30)
[2020-03-23] MEDS: Ondansetron 4 mg VIAL 2 MG/ML 2 ml VIAL IV PRN ×3 (10:30→20:47)
[2020-03-23] MEDS: TPN 24 HR with Dextrose 50% Water 500 ML, Amino Acid Infusion 10% 850 ML, Sterile Water... CENTR SCH (18:11)
[2020-03-23] MEDS: Latanoprost 0.005% 2.5 ml BTL BOTH EYES SCH (20:48)
[2020-03-24] MEDS: Timolol 0.5% OPTH.SOL BTL BOTH EYES SCH (07:55)
[2020-03-24] MEDS: HYDROmorphone 0.5 MG/0.5 ML SYRINGE IV SLOW PU PRN ×5 (07:56→22:06)
[2020-03-24] MEDS: Ondansetron 4 mg VIAL 2 MG/ML 2 ml VIAL IV PRN ×4 (07:56→22:04)
[2020-03-24] MEDS: TPN 24 HR with Dextrose 50% Water 500 ML, Amino Acid Infusion 10% 850 ML, Sterile Water... CENTR SCH (17:16)
[2020-03-24] MEDS: Latanoprost 0.005% 2.5 ml BTL BOTH EYES SCH (19:51)
[2020-03-25] MEDS: HYDROmorphone 0.5 MG/0.5 ML SYRINGE IV SLOW PU PRN ×7 (02:24→22:30)
[2020-03-25 05:55] LABS: ABS Eosinophils 0.2 10^3/ul (0-0.6); ABS Lymphocytes 0.3 10^3/ul (1.0-4.8); ABS Monocytes 0.5 10^3/ul (0-0.8); Eosinophil % 4.9 %; Hematocrit 24 % (42-52); Hemoglobin 7.9 g/dL (14.0-18.0); Lymphocyte % 8.7 %; Mean Corpuscular HGB Conc 33 g/dL (31-36); Mean Corpuscular Hemoglobin 28 pg (27-31); Mean Corpuscular Volume 83 fL (80-94); Mean Platelet Volume 9.8 fL (7.4-10.4); Nucleated Red Blood Cells % 0.2; Platelet Count 89 10^3/uL (150-450); Red Blood Count 2.84 10^6 /uL (4.18-5.48); Red Cell Distribution Width 18 % (10-15); White Blood Count 3.6 10^3/uL (3.5-10.8)
[2020-03-25 06:18] LABS: ALT 29 U/L (7-52); AST 65 U/L (13-39); Albumin/Globulin Ratio 0.5 (1-3); Alkaline Phosphatase 127 U/L (34-104); BUN/Creatinine Ratio 40.9 (8-20); Blood Urea Nitrogen 18 mg/dL (6-24); CO2 Carbon Dioxide 26 mmol/L (22-32); Calcium 7.9 mg/dL (8.6-10.3); Chloride 104 mmol/L (101-111); EGFR Non-African American 193.4 (>60); Globulin 3.8 g/dL (2-4); Glucose 117 mg/dL (70-100); Potassium 4.6 mmol/L (3.5-5.0); Sodium 129 mmol/L (135-145); Total Protein 5.8 g/dL (6.4-8.9)
[2020-03-25] MEDS: Timolol 0.5% OPTH.SOL BTL BOTH EYES SCH (07:26)
[2020-03-25] MEDS: Ondansetron 4 mg VIAL 2 MG/ML 2 ml VIAL IV PRN (12:04)
[2020-03-25] MEDS ORDERED: TPN 24 HR with Dextrose 50% Water 500 ML, Amino Acid Infusion 10% 850 ML, Sterile Water... CENTR SCH (17:00)
[2020-03-25] MEDS: Latanoprost 0.005% 2.5 ml BTL BOTH EYES SCH (19:14)
[2020-03-26] MEDS: HYDROmorphone 0.5 MG/0.5 ML SYRINGE IV SLOW PU PRN ×4 (02:19→14:53)
[2020-03-26 05:59] LABS: Albumin 1.9 g/dL (3.2-5.2); Albumin/Globulin Ratio 0.5 (1-3); BUN/Creatinine Ratio 36.6 (8-20); Calcium 7.5 mg/dL (8.6-10.3); EGFR African American 253.9 (>60); EGFR Non-African American 209.8 (>60); Globulin 3.6 g/dL (2-4); Magnesium 1.8 mg/dL (1.9-2.7); Phosphorus 2.2 mg/dL (2.5-5.0); Potassium 4.5 mmol/L (3.5-5.0); Total Bilirubin 2.3 mg/dL (0.2-1.0); Total Protein 5.5 g/dL (6.4-8.9)
[2020-03-26] MEDS: Timolol 0.5% OPTH.SOL BTL BOTH EYES SCH (08:56)
[2020-03-26] MEDS: Ondansetron 4 mg VIAL 2 MG/ML 2 ml VIAL IV PRN ×2 (09:00→14:11)
[2020-03-26] MEDS: Latanoprost 0.005% 2.5 ml BTL BOTH EYES SCH (21:26)
[2020-03-27] MEDS: Timolol 0.5% OPTH.SOL BTL BOTH EYES SCH (09:45)
[2020-03-27 10:06] LABS: ABS Eosinophils 0.2 10^3/ul (0-0.6); ABS Lymphocytes 0.4 10^3/ul (1.0-4.8); ABS Monocytes 0.5 10^3/ul (0-0.8); Eosinophil % 3.9 %; Hematocrit 24 % (42-52); Lymphocyte % 7.5 %; Mean Corpuscular HGB Conc 33 g/dL (31-36); Mean Corpuscular Hemoglobin 27 pg (27-31); Mean Corpuscular Volume 82 fL (80-94); Mean Platelet Volume 9.8 fL (7.4-10.4); Nucleated Red Blood Cells % 0.1; Platelet Count 120 10^3/uL (150-450); Red Blood Count 2.93 10^6 /uL (4.18-5.48); Red Cell Distribution Width 18 % (10-15); White Blood Count 5.2 10^3/uL (3.5-10.8)
[2020-03-27 10:29] LABS: Albumin 1.9 g/dL (3.2-5.2); Albumin/Globulin Ratio 0.5 (1-3); BUN/Creatinine Ratio 30.6 (8-20); Calcium 7.6 mg/dL (8.6-10.3); EGFR African American 206.7 (>60); EGFR Non-African American 170.8 (>60); Globulin 3.9 g/dL (2-4); Magnesium 1.7 mg/dL (1.9-2.7); Potassium 4.4 mmol/L (3.5-5.0); Total Bilirubin 3.1 mg/dL (0.2-1.0); Total Protein 5.8 g/dL (6.4-8.9)
[2020-03-27] MEDS ORDERED: Albumin Human 25% 50 GM/200 ML BTL IV SCH (17:00)
[2020-03-27] MEDS: Albumin Human 25% 50 GM/200 ML BTL IV SCH (17:17)
[2020-03-27] MEDS: Latanoprost 0.005% 2.5 ml BTL BOTH EYES SCH (21:05)
[2020-03-28 04:40] LABS: Hematocrit 22 % (42-52); Hemoglobin 7.3 g/dL (14.0-18.0); Mean Corpuscular HGB Conc 33 g/dL (31-36); Mean Corpuscular Hemoglobin 27 pg (27-31); Mean Corpuscular Volume 82 fL (80-94); Mean Platelet Volume 9.1 fL (7.4-10.4); Platelet Count 107 10^3/uL (150-450); Red Cell Distribution Width 18 % (10-15); White Blood Count 2.9 10^3/uL (3.5-10.8)
[2020-03-28 05:00] LABS: ALT 35 U/L (7-52); AST 75 U/L (13-39); Albumin 2.3 g/dL (3.2-5.2); Albumin/Globulin Ratio 0.7 (1-3); Alkaline Phosphatase 195 U/L (34-104); Anion Gap 2 mmol/L (2-11); BUN/Creatinine Ratio 29.2 (8-20); Blood Urea Nitrogen 14 mg/dL (6-24); CO2 Carbon Dioxide 27 mmol/L (22-32); Calcium 7.9 mg/dL (8.6-10.3); Chloride 102 mmol/L (101-111); EGFR African American 211.7 (>60); EGFR Non-African American 174.9 (>60); Globulin 3.4 g/dL (2-4); Glucose 118 mg/dL (70-100); Magnesium 1.7 mg/dL (1.9-2.7); Sodium 131 mmol/L (135-145); Total Protein 5.7 g/dL (6.4-8.9)
[2020-03-28 05:07] LABS: Iron < 20 ug/dL (50-212)
[2020-03-28] MEDS: Timolol 0.5% OPTH.SOL BTL BOTH EYES SCH (08:19)
[2020-03-28] MEDS: Albumin Human 25% 50 GM/200 ML BTL IV SCH (08:59)
[2020-03-28 09:08] LABS: Ferritin 23.3 ng/mL (24-336)
[2020-03-28] MEDS: Latanoprost 0.005% 2.5 ml BTL BOTH EYES SCH (23:26)
[2020-03-29 06:22] LABS: ABS Eosinophils 0.1 10^3/ul (0-0.6); ABS Lymphocytes 0.3 10^3/ul (1.0-4.8); ABS Monocytes 0.3 10^3/ul (0-0.8); Eosinophil % 4.2 %; Hematocrit 22 % (42-52); Hemoglobin 7.4 g/dL (14.0-18.0); Lymphocyte % 12.3 %; Mean Corpuscular HGB Conc 34 g/dL (31-36); Mean Corpuscular Hemoglobin 28 pg (27-31); Mean Corpuscular Volume 82 fL (80-94); Mean Platelet Volume 9.2 fL (7.4-10.4); Nucleated Red Blood Cells % 0.1; Platelet Count 97 10^3/uL (150-450); Red Cell Distribution Width 19 % (10-15); White Blood Count 2.4 10^3/uL (3.5-10.8)
[2020-03-29 06:35] LABS: ALT 31 U/L (7-52); AST 58 U/L (13-39); Albumin 2.6 g/dL (3.2-5.2); Albumin/Globulin Ratio 0.8 (1-3); Alkaline Phosphatase 169 U/L (34-104); Anion Gap 3 mmol/L (2-11); BUN/Creatinine Ratio 21.6 (8-20); Blood Urea Nitrogen 11 mg/dL (6-24); CO2 Carbon Dioxide 28 mmol/L (22-32); Calcium 8.1 mg/dL (8.6-10.3); Chloride 102 mmol/L (101-111); EGFR African American 197.4 (>60); EGFR Non-African American 163.1 (>60); Globulin 3.1 g/dL (2-4); Glucose 103 mg/dL (70-100); Potassium 3.8 mmol/L (3.5-5.0); Sodium 133 mmol/L (135-145); Total Protein 5.7 g/dL (6.4-8.9)
[2020-03-29 07:45] LABS: Iron < 20 ug/dL (50-212)
[2020-03-29 07:56] LABS: Ferritin 19.9 ng/mL (24-336)
[2020-03-29] MEDS: Timolol 0.5% OPTH.SOL BTL BOTH EYES SCH (08:49)
[2020-03-29] MEDS: Albumin Human 25% 50 GM/200 ML BTL IV SCH (08:51)
[2020-03-29 10:55] VITALS: BP 121/52
== END 2020-03-29 12:50 | disposition home or self-care (01) | DRG 330 ==
LOC: AA 15:06 → ICU 03-15 16:00 → SSU 03-16 16:12
PROVIDERS: ADMIT Surgery; ATTEND Surgery